=== PATIENT | male | born 1950 | race Caucasian/White ===

== ENCOUNTER → 2020-12-01 | Outpatient (CLI) | payer OTHER ==
--- NOTE | 2020-12-01 16:00 | XR ---
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 TECHNIQUE: Frontal and lateral views of the chest are obtained. FINDINGS: Some underlying emphysematous changes are present. There is no focal air space opacity, ple ural effusion, or pneumothorax seen. The cardiac silhouette size is within normal limits. The osse ous structures are intact. IMPRESSION: No suspicious metallic density or foreign body to prevent MRI.
--- NOTE | 2020-12-01 16:04 | XR ---
EXAMINATION TYPE: XR tibia fibula LT DATE OF EXAM: 12/01/2020 CLINICAL HISTORY: Pre-MRI. Prior metal work. TECHNIQUE: Two views of the left leg are obtained. COMPARISON: None. FINDINGS: There is no acute fracture or dislocation seen in the left tibia or fibula. The visualize d left ankle joint appears within normal limits. Left knee joint is not completely imaged. The overl dougie soft tissue appears unremarkable without suspicious metallic foreign body to prevent MRI. IMPRESSION: As above.
--- NOTE | 2020-12-01 16:22 | XR ---
EXAMINATION TYPE: XR orbit detect foreign body DATE OF EXAM: 12/01/2020 COMPARISON: NONE HISTORY: Pre-MRI. Prior metallic injury. TECHNIQUE: X-ray orbit detect foreign body, 3 views with open and closed mouth frontal view and true lateral view. FINDINGS: No suspicious metallic intraorbital foreign body is seen to prevent MRI. Incidental moderate disc space narrowing and mild to moderate spurring C4-C5 level. IMPRESSION: As above.
== END ==
LOC: RADXRYALE 15:28
PROVIDERS: ATTEND Family Medicine
DX: R05 Cough (principal); Z03.89 Encounter for observation for other suspected diseases and conditions ruled out
CPT/HCPCS: 70030; 71046

== ENCOUNTER 2021-01-02 13:19 | Emergency (ER) | payer MEDICARE ==
--- NOTE | 2021-01-02 15:20 | CT ---
EXAMINATION TYPE: CT brain wo con DATE OF EXAM: 01/02/2021 COMPARISON: None INDICATION: Altered mental status DLP: 1157.2 mGycm, Automated exposure control for dose reduction was used. CONTRAST: None CT of the brain is performed utilizing 3 mm thick sections through the posterior fossa and 3 mm thick sections through the remaining calvarium. Study is performed within 24 hours of arrival to the hosp [facility]. No abnormal hyperdensity is present to suggest an acute intracranial hemorrhage. No mass lesion is evident. No acute infarcts are evident. Periventricular white matter hypodensity is present, likely on the bas is of chronic white matter ischemic changes. Ventricles and sulci are prominent for the patient age. Paranasal sinuses and mastoid air cells within the [id number] are clear. IMPRESSIONS: 1. Atrophy with. Periventricular white matter ischemic changes. 2. No acute intracranial process.
--- NOTE | 2021-01-02 15:21 | XR ---
EXAMINATION TYPE: XR chest 2V DATE OF EXAM: 01/02/2021 COMPARISON: 12/01/2020 INDICATION: Altered mental status weakness falls TECHNIQUE: Frontal and lateral views of the chest are obtained. FINDINGS: The heart size is normal. The pulmonary vasculature is normal. The lungs are clear. There is some hyperinflation which can be related to inspiratory effort or emph ysematous change. No pneumothorax is evident. No displaced rib fractures are evident. IMPRESSION: 1. Hyperinflation. 2. No acute pulmonary process
--- NOTE | 2021-01-02 18:25 | ED ---
Altered Mental Status HPI - General Chief Complaint: Altered Mental Status Stated Complaint: Confused/ Weakness Time Seen by Provider: 01/02/21 18:09 Source: patient, family, RN notes reviewed Mode of arrival: ambulatory Limitations: no limitations - History of Present Illness Initial Comments: Patient is a 70-year-old male that presents to the emergency department with his sister with the complaint of increased confusion and weakness. Sister notes t hat for the last several months patient has had difficulty walking around to the point where to get a 4-point cane. They noted a 4-point cane does help him get around. Patient denied any acute pain or complaints during the Medical exam and interview. Sister notes that there is history is of strokes and TIAs in the family wanted to get her brother evaluated for any potential issues. He denied any chest pain shortness breath headache nausea vomiting diarrhea constipation fever fatigue chills. - Related Data Home Medications Medication Instructions Recorded Confirmed No Known Home Medications 01/02/21 01/02/21 Allergies Allergy/AdvReac Type Severity Reaction Status Date / Time No Known Allergies Allergy Verified 01/02/21 19:17 Review of Systems ROS Statement: Those systems with pertinent positive or pertinent negative responses have been documented in the HPI. ROS Other: All systems not noted in ROS Statement are negative. Past Medical History Past Medical History: Unable to Obtain History of Any Multi-Drug Resistant Organisms: None Reported Past Surgical History: Hernia Repair Past Psychological History: No Psychological Hx Reported Smoking Status: Current every day smoker Past Alcohol Use History: None Reported Past Drug Use History: None Reported General Exam Limitations: no limitations General appearance: alert, in no apparent distress Head exam: Present: atraumatic, normocephalic, normal inspection Eye exam: Present: normal appearance, PERRL, EOMI. Absent: scleral icterus, conjunctival injection, periorbital swelling Neck exam: Present: normal inspection. Absent: tenderness, meningismus, lymp hadenopathy Respiratory exam: Present: normal lung sounds bilaterally. Absent: respiratory distress, wheezes, rales, rhonchi, stridor Cardiovascular Exam: Present: regular rate, normal rhythm, normal heart sounds. Absent: systolic murmur, diastolic murmur, rubs, gallop, clicks GI/Abdominal exam: Present: soft, normal bowel sounds. Absent: distended, tenderness, guarding, rebound, rigid Extremities exam: Present: normal inspection, full ROM, normal capillary refill. Absent: tenderness, pedal edema, joint swelling, calf tenderness Neurological exam: Present: alert, CN II-XII intact. Absent: oriented X3 (Patient thought the year was 2010 and that it was December.) Psychiatric exam: Present: normal affect, normal mood Skin exam: Present: warm, dry, intact, normal color. Absent: rash Course Vital Signs 01/02/21 13:42 Temperature 98 F Pulse Rate 85 Respiratory 16 Rate Blood Pressure 171/81 O2 Sat by Pulse 99 Oximetry Medical Decision Making - Medical Decision Making 70-year-old male presenting with his sister complaining of confusion and weakness. Labs, EKG, CT of the brain, chest x-ray ordered. Labs unremarkable. Case discussed with Dr. Hodge, patient can discharge home with follow-up to [facility]. - Lab Data Result diagrams: 01/02/21 18:35 01/02/21 18:35 Lab Results 01/02/21 01/02/21 01/02/21 Range/Units 18:35 18:35 18:35 WBC 7.7 (3.8-10.6) k/uL RBC 4.40 (4.30-5.90) m/uL Hgb 13.4 (13.0-17.5) gm/dL Hct 39.2 (39.0-53.0) % MCV 89.2 (80.0-100.0) fL MCH 30.6 (25.0-35.0) pg MCHC 34.3 (31.0-37.0) g/dL RDW 13.3 (11.5-15.5) % Plt Count 368 (150-450) k/uL MPV 6.7 Neutrophils % 66 % Lymphocytes % 20 % Monocytes % 7 % Eosinophils % 5 % Basophils % 1 % Neutrophils # 5.1 (1.3-7.7) k/uL Lymphocytes # 1.5 (1.0-4.8) k/uL Monocytes # 0.5 (0-1.0) k/uL Eosinophils # 0.4 (0-0.7) k/uL Basophils # 0.1 (0-0.2) k/uL PT 9.9 (9.0-12.0) sec INR 0.9 (<1.2) APTT 23.6 (22.0-30.0) sec Sodium 133 L (137-145) mmol/L Potassium 4.5 (3.5-5.1) mmol/L Chloride 99 (98-107) mmol/L Carbon Dioxide 26 (22-30) mmol/L Anion Gap 8 mmol/L BUN 12 (9-20) mg/dL Creatinine 0.63 L (0.66-1.25) mg/dL Est GFR (CKD-EPI)AfAm >90 (>60 ml/min/1.73 sqM) Est GFR (CKD-EPI)NonAf >90 (>60 ml/min/1.73 sqM) Glucose 96 (74-99) mg/dL Calcium 9.5 (8.4-10.2) mg/dL Total Bilirubin 1.1 (0.2-1.3) mg/dL AST 25 (17-59) U/L ALT 14 (4-49) U/L Alkaline Phosphatase 78 (38-126) U/L Creatine Kinase 106 (55-170) U/L Troponin I (0.000-0.034) ng/mL Total Protein 7.3 (6.3-8.2) g/dL Albumin 4.5 (3.5-5.0) g/dL Coronavirus (PCR) (Not Detectd) 01/02/21 01/02/21 Range/Units 18:35 18:45 WBC (3.8-10.6) k/uL RBC (4.30-5.90) m/uL Hgb (13.0-17.5) gm/dL Hct (39.0-53.0) % MCV (80.0-100.0) fL MCH (25.0-35.0) pg MCHC (31.0-37.0) g/dL RDW (11.5-15.5) % Plt Count (150-450) k/uL MPV Neutrophils % % Lymphocytes % % Monocytes % % Eosinophils % % Basophils % % Neutrophils # (1.3-7.7) k/uL Lymphocytes # (1.0-4.8) k/uL Monocytes # (0-1.0) k/uL Eosinophils # (0-0.7) k/uL Basophils # (0-0.2) k/uL PT (9.0-12.0) sec INR (<1.2) APTT (22.0-30.0) sec Sodium (137-145) mmol/L Potassium (3.5-5.1) mmol/L Chloride (98-107) mmol/L Carbon Dioxide (22-30) mmol/L Anion Gap mmol/L BUN (9-20) mg/dL Creatinine (0.66-1.25) mg/dL Est GFR (CKD-EPI)AfAm (>60 ml/min/1.73 sqM) Est GFR (CKD-EPI)NonAf (>60 ml/min/1.73 sqM) Glucose (74-99) mg/dL Calcium (8.4-10.2) mg/dL Total Bilirubin (0.2-1.3) mg/dL AST (17-59) U/L ALT (4-49) U/L Alkaline Phosphatase (38-126) U/L Creatine Kinase (55-170) U/L Troponin I <0.012 (0.000-0.034) ng/mL Total Protein (6.3-8.2) g/dL Albumin (3.5-5.0) g/dL Coronavirus (PCR) Not Detected (Not Detectd) - EKG Data -: EKG Interpreted by Oh EKG shows normal: sinus rhythm Rate: normal EKG Comments: Ventricular rate 87 bpm, NE interval 150 ms, QRS duration 100 ms, QT/QTc 400/481 ms, PRT axes 36/-14/34. Normal sinus rhythm, long QT, abnormal ECG. - Radiology Data Radiology results: report reviewed, image reviewed Chest x-ray: Hyperinflation, no acute pulmonary process. CT of the brain: Atrophy with periventricular white matter ischemic changes. No acute intracranial process Disposition Clinical Impression: Dementia Disposition: HOME SELF-CARE Condition: Stable Instructions (If sedation given, give patient instructions): Altered Mental Status (ED) Additional Instructions: Please return to the Emergency Department if symptoms worsen or any other concerns. Follow-up with primary care possibly get referral for neurologist. Look into assisted living or nursing facilities if care for brother becomes too much Is patient prescribed a controlled substance at d/c from ED?: No Referrals: Bernard Cummings DO [Primary Care Provider] - 1-2 days Time of Disposition: 19:38
[2021-01-02 18:43] LABS: Basophils # (A) 0.1 k/uL (0-0.2); Basophils % (A) 1 %; Eosinophils # (A) 0.4 k/uL (0-0.7); Eosinophils % (A) 5 %; HCT 39.2 % (39.0-53.0); HGB 13.4 gm/dL (13.0-17.5); Lymphocytes # (A) 1.5 k/uL (1.0-4.8); Lymphocytes % (A) 20 %; MCH 30.6 pg (25.0-35.0); MCHC 34.3 g/dL (31.0-37.0); MCV 89.2 fL (80.0-100.0); Mean Platelet Volume 6.7; Monocytes # (A) 0.5 k/uL (0-1.0); Monocytes % (A) 7 %; Neutrophils # (A) 5.1 k/uL (1.3-7.7); Neutrophils % (A) 66 %; Platelet Count 368 k/uL (150-450); RDW 13.3 % (11.5-15.5); WBC 7.7 k/uL (3.8-10.6)
[2021-01-02 18:53] LABS: INR 0.9 (<1.2); Partial Thromboplastin Time 23.6 sec (22.0-30.0); Prothrombin Time 9.9 sec (9.0-12.0)
[2021-01-02 18:55] LABS: ALT 14 U/L (4-49); AST 25 U/L (17-59); African American GFR (CKD) >90 (>60 ml/min/1.73 sqM); Albumin 4.5 g/dL (3.5-5.0); Alkaline Phosphatase 78 U/L (38-126); Anion Gap 8 mmol/L; Blood Urea Nitrogen 12 mg/dL (9-20); Calcium 9.5 mg/dL (8.4-10.2); Carbon Dioxide 26 mmol/L (22-30); Chloride 99 mmol/L (98-107); Creatine Kinase 106 U/L (55-170); Glucose 96 mg/dL (74-99); Non-African American GFR(CKD) >90 (>60 ml/min/1.73 sqM); Potassium 4.5 mmol/L (3.5-5.1); Sodium 133 mmol/L (137-145); Total Bilirubin 1.1 mg/dL (0.2-1.3); Total Protein 7.3 g/dL (6.3-8.2)
[2021-01-02 19:41] VITALS: BP 168/93; PULSE 87; RESP 18; TEMP 98.5
== END 2021-01-02 19:57 | disposition home or self-care (01) ==
LOC: EC 13:19
DX: F03.90 Unspecified dementia, unspecified severity, without behavioral disturbance, psychotic disturbance, mood disturbance, and anxiety (principal); F17.200 Nicotine dependence, unspecified, uncomplicated
CPT/HCPCS: 70450; 71046; 80053; 82550; 84484; 85025; 85610; 85730; 87635; 93005; 99285

== ENCOUNTER 2021-03-26 11:30 | Inpatient (IN) | payer OTHER, MEDICARE ==
[2021-03-26] MEDS ORDERED: SODIUM CHLORIDE 0.9% 1,000 ML IV STA (12:19)
[2021-03-26] MEDS ORDERED: SODIUM CHLORIDE 0.9% 500 ML 500 ML IV STA (12:19)
--- NOTE | 2021-03-26 12:54 | ED ---
Weakness HPI - General Chief complaint: Weakness Stated complaint: Weakness/not eating Time Seen by Provider: 03/26/21 12:10 Source: patient, family Mode of arrival: wheelchair Limitations: altered mental status, physical limitation - History of Present Illness Initial comments: This 70-year-old male presents with his sister with a complaint of mental status changes. She relates that this has been ongoing for quite some time. It is difficult to determine exact timeline but it sounds as though it may have been present for over a year. He previously lived in [place]. She picked him up in [place] and brought him back to [place] in November of this year. He has deteriorated since then. He has been diagnosed with dementia. He has had full workup including an EEG yesterday. He had a computed tomography scan of the brain 2 months ago and an MRI scan of the brain last month. He is seeing a local neurologist and was sent to the emergency department for evaluation today. 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 She also relates that normal pressure hydrocephalus was ruled out. She states that his symptoms have progressively and significantly worsened over the last 3 weeks. He previously was able to ambulate but now is unable to ambulate. He also has had a chronic smoker's cough. He also smoked for most of his life. There has been no fevers or chills. There has been any head injuries or trauma. No other identifiable complaints or modifying factors. Patient has no complaints but history is limited due to his dementia. - Related Data Home Medications Medication Instructions Recorded Confirmed Donepezil [Aricept] 10 mg PO HS 03/26/21 03/26/21 Allergies Allergy/AdvReac Type Severity Reaction Status Date / Time No Known Allergies Allergy Verified 03/26/21 13:27 Review of Systems ROS Statement: Those systems with pertinent positive or pertinent negative responses have been documented in the HPI. ROS Other: All systems not noted in ROS Statement are negative. Past Medical History Past Medical History: Dementia History of Any Multi-Drug Resistant Organisms: None Reported Past Surgical History: Hernia Repair Past Psychological History: No Psychological Hx Reported Smoking Status: Current every day smoker Past Alcohol Use History: Abuse Past Drug Use History: None Reported General Exam - General Exam Comments Initial Comments: GENERAL: The patient is well nourished and minimally dehydrated. VITAL SIGNS: Heart rate, blood pressure, respiratory rate reviewed as recorded i n nurse's notes. EYES: Pupils are round and reactive. Extraocular movements are intact. No conjunctival / lid redness or swelling. ENT: No external evidence of injury, swelling, or ecchymosis. Airway is patent. Throat is clear. NECK: Nontender. No swelling or evidence of injury. No subcutaneous emphysema. Trachea is midline. No thyroid mass. HEART: Regular rate and rhythm. Good peripheral pulses. LUNGS/CHEST: Minimal wheezing noted bilaterally. No ecchymosis, subcutaneous emphysema, or tenderness. ABDOMEN: Abdomen soft without tenderness. No palpable masses or organomegaly. No peritoneal signs. No abdominal wall swelling or ecchymosis. EXTREMITIES: No extremity tenderness. Normal muscle tone and function. No thoracolumbar tenderness. NEUROLOGIC: Sensation is grossly intact. Cranial nerve exam reveals face is symmetrical, tongue is midline, speech is clear. SKIN: No abrasions or ecchymosis is noted. No induration or masses noted. PSYCHIATRIC: Alert but confused. Limitations: altered mental status, physical limitation Course Vital Signs 03/26/21 03/26/21 03/26/21 11:41 14:11 14:38 Temperature 97.8 F Pulse Rate 94 80 75 Respiratory 20 18 Rate Blood Pressure 136/81 136/91 O2 Sat by Pulse 96 96 Oximetry 03/26/21 14:43 Temperature Pulse Rate 76 Respiratory Rate Blood Pressure O2 Sat by Pulse Oximetry Medical Decision Making - Medical Decision Making The patient was seen and examined. All diagnostics were reviewed. An IV is established and he is hydrated. He also receives a DuoNeb breathing treatment. Laboratories reviewed and does show mild pronator anemia but no other acute abnormalities. Urinalysis shows some ketonuria but no evidence of infection. Chest x-ray does not show any acute processes. Computed tomography scan of the brain shows some senna sent changes but no acute process. The exact cause of the patient's mental status changes and inability to ambulate/weakness is not definitively determine but it is felt as though he would benefit from admission to the hospital. The sister is quite agreeable. Case is discussed with Dr. Wang and he is agreeable as well. Patient will be admitted to the general medical floor for further treatment. Neurology will consult. Thiamine is initiated. - Lab Data Result diagrams: 03/26/21 13:12 03/26/21 13:12 Lab Results 03/26/21 03/26/21 03/26/21 Range/Units 13:12 13:12 13:12 WBC 10.1 (3.8-10.6) k/uL RBC 4.77 (4.30-5.90) m/uL Hgb 13.7 (13.0-17.5) gm/dL Hct 40.2 (39.0-53.0) % MCV 84.2 (80.0-100.0) fL MCH 28.7 (25.0-35.0) pg MCHC 34.1 (31.0-37.0) g/dL RDW 12.5 (11.5-15.5) % Plt Count 553 H (150-450) k/uL MPV 6.7 Neutrophils % 80 % Lymphocytes % 8 % Monocytes % 7 % Eosinophils % 3 % Basophils % 1 % Neutrophils # 8.0 H (1.3-7.7) k/uL Lymphocytes # 0.8 L (1.0-4.8) k/uL Monocytes # 0.7 (0-1.0) k/uL Eosinophils # 0.3 (0-0.7) k/uL Basophils # 0.1 (0-0.2) k/uL PT 10.3 (9.0-12.0) sec INR 1.0 (<1.2) APTT 26.9 (22.0-30.0) sec Sodium (137-145) mmol/L Potassium (3.5-5.1) mmol/L Chloride (98-107) mmol/L Carbon Dioxide (22-30) mmol/L Anion Gap mmol/L BUN (9-20) mg/dL Creatinine (0.66-1.25) mg/dL Est GFR (CKD-EPI)AfAm (>60 ml/min/1.73 sqM) Est GFR (CKD-EPI)NonAf (>60 ml/min/1.73 sqM) Glucose (74-99) mg/dL Calcium (8.4-10.2) mg/dL Phosphorus (2.5-4.5) mg/dL Magnesium (1.6-2.3) mg/dL Total Bilirubin (0.2-1.3) mg/dL AST (17-59) U/L ALT (4-49) U/L Alkaline Phosphatase (38-126) U/L Troponin I (0.000-0.034) ng/mL Total Protein (6.3-8.2) g/dL Albumin (3.5-5.0) g/dL TSH (0.465-4.680) mIU/L Urine Color Yellow Urine Appearance Clear (Clear) Urine pH 5.5 (5.0-8.0) Ur Specific [place] 1.026 (1.001-1.035) Urine Protein Negative (Negative) Urine Glucose (UA) Negative (Negative) Urine Ketones Trace H (Negative) Urine Blood Negative (Negative) Urine Nitrite Negative (Negative) Urine Bilirubin Negative (Negative) Urine Urobilinogen <2.0 (<2.0) mg/dL Ur Leukocyte Esterase Negative (Negative) 03/26/21 03/26/21 Range/Units 13:12 13:12 WBC (3.8-10.6) k/uL RBC (4.30-5.90) m/uL Hgb (13.0-17.5) gm/dL Hct (39.0-53.0) % MCV (80.0-100.0) fL MCH (25.0-35.0) pg MCHC (31.0-37.0) g/dL RDW (11.5-15.5) % Plt Count (150-450) k/uL MPV Neutrophils % % Lymphocytes % % Monocytes % % Eosinophils % % Basophils % % Neutrophils # (1.3-7.7) k/uL Lymphocytes # (1.0-4.8) k/uL Monocytes # (0-1.0) k/uL Eosinophils # (0-0.7) k/uL Basophils # (0-0.2) k/uL PT (9.0-12.0) sec INR (<1.2) APTT (22.0-30.0) sec Sodium 132 L (137-145) mmol/L Potassium 4.9 (3.5-5.1) mmol/L Chloride 97 L (98-107) mmol/L Carbon Dioxide 25 (22-30) mmol/L Anion Gap 10 mmol/L BUN 21 H (9-20) mg/dL Creatinine 0.59 L (0.66-1.25) mg/dL Est GFR (CKD-EPI)AfAm >90 (>60 ml/min/1.73 sqM) Est GFR (CKD-EPI)NonAf >90 (>60 ml/min/1.73 sqM) Glucose 102 H (74-99) mg/dL Calcium 10.1 (8.4-10.2) mg/dL Phosphorus 4.6 H (2.5-4.5) mg/dL Magnesium 2.3 (1.6-2.3) mg/dL Total Bilirubin 0.8 (0.2-1.3) mg/dL AST 30 (17-59) U/L ALT 18 (4-49) U/L Alkaline Phosphatase 95 (38-126) U/L Troponin I <0.012 (0.000-0.034) ng/mL Total Protein 7.0 (6.3-8.2) g/dL Albumin 4.1 (3.5-5.0) g/dL TSH 1.920 (0.465-4.680) mIU/L Urine Color Urine Appearance (Clear) Urine pH (5.0-8.0) Ur Specific [place] (1.001-1.035) Urine Protein (Negative) Urine Glucose (UA) (Negative) Urine Ketones (Negative) Urine Blood (Negative) Urine Nitrite (Negative) Urine Bilirubin (Negative) Urine Urobilinogen (<2.0) mg/dL Ur Leukocyte Esterase (Negative) Disposition Clinical Impression: Dementia, Cough, Mental status alteration, Inability to walk, COPD (chronic obstructive pulmonary disease) Disposition: ADMITTED IP TO THIS [facility] Condition: Fair Referrals: Bernard Cummings DO [Primary Care Provider] - 1-2 days Time of Disposition: 16:04 Decision Date: 03/26/21 Decision Time: 16:04
[2021-03-26] MEDS ORDERED: IPRATROPIUM-ALBUTEROL 3 ML NEB INHALATION STA (13:00)
[2021-03-26 13:26] LABS: Basophils # (A) 0.1 k/uL (0-0.2); Basophils % (A) 1 %; Eosinophils # (A) 0.3 k/uL (0-0.7); Eosinophils % (A) 3 %; HCT 40.2 % (39.0-53.0); HGB 13.7 gm/dL (13.0-17.5); Lymphocytes # (A) 0.8 k/uL (1.0-4.8); Lymphocytes % (A) 8 %; MCH 28.7 pg (25.0-35.0); MCHC 34.1 g/dL (31.0-37.0); MCV 84.2 fL (80.0-100.0); Mean Platelet Volume 6.7; Monocytes # (A) 0.7 k/uL (0-1.0); Monocytes % (A) 7 %; Neutrophils % (A) 80 %; Platelet Count 553 k/uL (150-450); RBC 4.77 m/uL (4.30-5.90); RDW 12.5 % (11.5-15.5); WBC 10.1 k/uL (3.8-10.6)
[2021-03-26 13:31] LABS: Partial Thromboplastin Time 26.9 sec (22.0-30.0); Prothrombin Time 10.3 sec (9.0-12.0)
[2021-03-26 13:51] LABS: ALT 18 U/L (4-49); AST 30 U/L (17-59); African American GFR (CKD) >90 (>60 ml/min/1.73 sqM); Albumin 4.1 g/dL (3.5-5.0); Alkaline Phosphatase 95 U/L (38-126); Anion Gap 10 mmol/L; Blood Urea Nitrogen 21 mg/dL (9-20); Calcium 10.1 mg/dL (8.4-10.2); Carbon Dioxide 25 mmol/L (22-30); Chloride 97 mmol/L (98-107); Glucose 102 mg/dL (74-99); Magnesium 2.3 mg/dL (1.6-2.3); Non-African American GFR(CKD) >90 (>60 ml/min/1.73 sqM); Phosphorus 4.6 mg/dL (2.5-4.5); Potassium 4.9 mmol/L (3.5-5.1); Sodium 132 mmol/L (137-145); Total Bilirubin 0.8 mg/dL (0.2-1.3)
--- NOTE | 2021-03-26 14:36 | CT ---
EXAMINATION TYPE: CT brain wo con DATE OF EXAM: 03/26/2021 COMPARISON: 01/02/2021 HISTORY: 70-year-old male neuro deficit, acute, persistent or progressing TECHNIQUE: Examination was done in axial plane without intravenous contrast. Coronal and sagittal r econstructions performed. CT DLP: 1107.4 mGycm Automated exposure control for dose reduction was used. FINDINGS: There is no evidence of acute intracranial hemorrhage, acute ischemic changes, mass, mass-effect, or extra-axial fluid collection. There is no effacement of cerebral sulci or basal subarachnoid cister ns. There is no hydrocephalus. There is no midline shift. Foster-white matter distinction is preserv ed. Mild generalized supratentorial volume loss. Mild ventricular prominence is unchanged likely secondar y to central cerebral atrophy. Mild to moderate patchy white matter hypodensities in both cervical he mispheres. Mild atherosclerotic calcifications in the bilateral carotid siphons. Paranasal sinuses and mastoid air cells well pneumatized. Visualized orbits and globes are intact. IMPRESSION: Mild generalized atrophy and mild burden of chronic small vessel ischemic disease. No acute intracran ial abnormality seen.
--- NOTE | 2021-03-26 14:41 | XR ---
EXAMINATION TYPE: XR chest 2V DATE OF EXAM: 03/26/2021 COMPARISON: 01/02/2021 HISTORY: 70-year-old male with weakness TECHNIQUE: AP and lateral views FINDINGS: Heart upper limits of normal in size. Increased interstitial change and some patchy opacity in the pe riphery of the right lung and also at the posterior base. No sizable effusion. IMPRESSION: Borderline heart size. Increased interstitial changes throughout along with new patchy densities cinthia phery of the right lung and posterior base. Further clinical correlation recommended. Some considerat ions include pulmonary vascular congestion, interstitial pneumonitis, and atypical/COVID pneumonia.
[2021-03-26 15:30] LABS: Appearance,Urine Clear (Clear); Bilirubin,Urine Negative (Negative); Blood,Urine Negative (Negative); Color,Urine Yellow; Glucose,Urine (UA) Negative (Negative); Ketones,Urine Trace (Negative); Leukocyte Esterase,Urine Negative (Negative); Nitrite,Urine Negative (Negative); PH, Urine 5.5 (5.0-8.0); Protein,Urine Negative (Negative); Specific Gravity,Urine 1.026 (1.001-1.035); Urobilinogen,Urine <2.0 mg/dL (<2.0)
[2021-03-26] MEDS ORDERED: MAGNESIUM OXIDE 400 MG TAB PO STA (16:05)
[2021-03-26] MEDS ORDERED: ACETAMINOPHEN TAB 325 MG TAB PO PRN (16:06)
[2021-03-26] MEDS ORDERED: ONDANSETRON 4 MG/2 ML VIAL IVP PRN (16:06)
[2021-03-26] MEDS ORDERED: THIAMINE 100 MG TAB PO SCH (16:15)
--- NOTE | 2021-03-26 21:16 | P.HPIM ---
History of Present Illness This is a pleasant 70 years old male with past medical history of dementia, memory impairment, alcohol abuse. He is a patient of Dr. Cummings. Brought by his sister who is at bedside. She could not provide any information. As per sister patient lives in [place] and last October she she was talking to him on the a phone call and notice he is confused thinking that he saw her the day earlier so she traveled to him and brought him here to [place] she was found up with Dr. Cummings who referred her to neurologist Dr. Monica Fields who did workup for him including MRI of the brain, CT of the brain, EEG and it was unremarkable as per sister, she was told by her neurologist that the patient does not have NPH or seizure-like activity so she advised him to come to emergency room. Patient is lying in bed comfortable, not in distress, barely answers with one or 2 words, like his name only. He does not answer when asked about orientation. However he denies any pain. No headache. No blurred vision. No weakness or nu mbness. No chest pain. No diarrhea however on the way to the hospital he has 1 episode of loose stool. No urinary complaints. However history is limited by patient mental status. As per he is heavy smoker and he drinks 4-5 drinks of whiskey daily. Vitas looks stable. Patient was noticed to be little bit tachypneic and he is coughing but it's a dry Oxygen saturation is 96-94% on room air. CBC is unremarkable except for mildly elevated platelet count at 553, neutrophil count is elevated at 8.0 and low lymphocyte. Is 1.0. Sodium is slightly low at 132,. BUN is 21 and creatinine 0.9. Glucose 102. Phosphorus is a little high at 4.6. Magnesium 2.3. Liver enzymes and bilirubin are within the reference range. Urinalysis is no suspicious of infections and coronavirus not detected. EKG showing normal sinus rhythm at [address]-T changes His x-rays show an increase interstitial changes throughout the lung with new patchy density periphery of the right lung and posterior base. Further clinical correlation recommended. Some considerations include pulmonary vascular congestion, interstitial pneumonitis and atypical, pneumonia. CT of the brain: Mild generalized atrophy and multiple organ of chronic small vessel ischemic disease. No acute intracranial abnormality seen. In the emergency room patient received breathing treatment, magnesium oxide, 1.5 L of normal saline Review of Systems n/a, patient could not provide information because of confusion Past Medical History Past Medical History: Dementia, Memory Impairment, Musculoskeletal Disorder Additional Past Medical History / Comment(s): Hx ETOH, smoker History of Any Multi-Drug Resistant Organisms: None Reported Past Surgical History: Hernia Repair Past Anesthesia/Blood Transfusion Reactions: No Reported Reaction Past Psychological History: No Psychological Hx Reported Smoking Status: Former smoker Past Alcohol Use History: Abuse Past Drug Use History: None Reported - Past Family History Father Family Medical History: CVA/TIA Medications and Allergies Home Medications Medication Instructions Recorded Confirmed Type Donepezil [Aricept] 10 mg PO HS 03/26/21 03/26/21 History Allergies Allergy/AdvReac Type Severity Reaction Status Date / Time No Known Allergies Allergy Verified 03/26/21 13:27 Physical Exam Vitals: Vital Signs Temp Pulse Resp BP Pulse Ox 03/26/21 18:30 17 03/26/21 18:17 98.7 F 78 14 144/86 94 L 03/26/21 14:43 76 03/26/21 14:38 75 03/26/21 14:11 80 18 136/91 96 03/26/21 11:41 97.8 F 94 20 136/81 96 Intake and Output 03/26/21 03/26/21 03/26/21 06:59 14:59 22:59 Other: Weight 70.76 kg 70.76 kg -GENERAL: The patient is confused, open eyes spontaneously and and answers with 1 or 2 words at times, not in any acute distress. Well developed, well nourished. HEENT: Pupils are round and equally reacting to light. EOMI. No scleral icterus. No conjunctival pallor. Normocephalic, atraumatic. No pharyngeal erythema. No thyromegaly. CARDIOVASCULAR: S1 and S2 present. No murmurs, rubs, or gallops. -PULMONARY: Chest is clear to auscultation, no wheezing or crackles. Patient is mildly tachypneic ABDOMEN: Soft, nontender, nondistended, normoactive bowel sounds. No palpable organomegaly. MUSCULOSKELETAL: No joint swelling or deformity. EXTREMITIES: No cyanosis, clubbing, or pedal edema. NEUROLOGICAL: Gross neurological examination did not reveal any focal deficits. SKIN: No rashes. no petechiae. Results CBC & Chem 7: 03/26/21 13:12 03/26/21 13:12 Labs: Abnormal Lab Results - Last 24 Hours (Table) 03/26/21 03/26/21 03/26/21 Range/Units 13:12 13:12 13:12 Plt Count 553 H (150-450) k/uL Neutrophils # 8.0 H (1.3-7.7) k/uL Lymphocytes # 0.8 L (1.0-4.8) k/uL Sodium 132 L (137-145) mmol/L Chloride 97 L (98-107) mmol/L BUN 21 H (9-20) mg/dL Creatinine 0.59 L (0.66-1.25) mg/dL Glucose 102 H (74-99) mg/dL Phosphorus 4.6 H (2.5-4.5) mg/dL Urine Ketones Trace H (Negative) Thrombosis Risk Factor Assmnt - Choose All That Apply Each Factor Represents 1 point: Medical pt on bed rest Each Risk Factor Represents 2 Points: Age 61-74 years Thrombosis Risk Factor Assessment Total Risk Factor Score: 3 Thrombosis Risk Factor Assessment Level: Moderate Risk Assessment and Plan Assessment: Altered mental status, rule out metabolic encephalopathy on the top of his dementia Bilateral pulmonary patchy density on the right lung. Rule out pneumonia versus pulmonary vascular congestion Dementia, could be early Alzheimer dementia , could be also related to alcoholic effect Plan: This is a pleasant 70 years old male who presents with AMS and right patchy density of the lung. Check a pro-calcitonin, proBNP Check echocardiogram Check ABG Follow-up blood culture Neurology consult Labs and medication were reviewed.. Continue same treatment. Continue with symptomatic treatment. Resume home medication. Monitor lytes and vitals. DVT and GI prophylaxis. Further recommendations as per clinical course of the patient DVT prophylaxis: Subcutaneous Lovenox GI Prophylaxis: Pepcid Prognosis is guarded
[2021-03-26] MEDS: FOLIC ACID 1 MG TAB PO SCH (22:05)
[2021-03-26] MEDS: DONEPEZIL 10 MG TAB PO SCH (22:05)
[2021-03-26] MEDS: THIAMINE 100 MG in SODIUM CHLORIDE 0.9% 50 ML IVPB SCH (22:05)
[2021-03-27 02:06] LABS: ABG Base Excess 0.8 mmol/L; ABG HCO3 25 mmol/L (21-25); ABG Oxygen Saturation 91.8 % (94-97); ABG PCO2 35 mmHg (35-45); ABG PH 7.46 (7.35-7.45); ABG PO2 61 mmHg (83-108); ABG TCO2 26 mmol/L (19-24); Allen Test Performed? Yes
[2021-03-27] MEDS ORDERED: PANTOPRAZOLE 40 MG TABLET PO SCH (07:30)
[2021-03-27] MEDS: FAMOTIDINE 20 MG/2 ML VIAL IV SCH ×2 (09:07→21:09)
[2021-03-27] MEDS: FOLIC ACID 1 MG TAB PO SCH (09:13)
[2021-03-27] MEDS: ENOXAPARIN 40 MG/0.4 ML SYRINGE SQ SCH (09:13)
[2021-03-27] MEDS: THIAMINE 100 MG in SODIUM CHLORIDE 0.9% 50 ML IVPB SCH ×2 (09:13→21:18)
[2021-03-27 10:33] LABS: Folate, Serum 4.5 ng/mL
[2021-03-27] MEDS: CARBIDOPA-LEVODOPA 25-100 MG 1 EACH TAB PO SCH ×3 (11:12→21:10)
[2021-03-27] MEDS ORDERED: CYANOCOBALAMIN 1,000 MCG/ML 1 ML VIAL IM ONE (11:25)
--- NOTE | 2021-03-27 11:28 | P.CNNES ---
History of Present Illness Consult date: 03/27/21 Requesting physician: Juan Daniel Lott Reason for Consult: mental status change, weakness History of Present Illness: This is a 70-year-old element with medical history of Dementia, severe alcohol use,chronic tobacco use, that is to the emergency department on 03/26/2021 for altered mental status. History was obtained from medical record. Per the ED note patient has been having altered mentation for over a year but has been progressively worsening especially over the last 3 weeks. He use to live in [place] and is seems the family member (sister), picked him up at [place] and brought him back to [place] in November the 2020. It seems that he is follow-up with a local neurologist and he had workup in which she had an EEG the day before come to the hospital, MRI of the brain last month and his work-up was reported as unremarkable per the sister that was relayed to the primary team. And normal pressure hydrocephalus and was not felt like seizure-like activity ruled out. He is having also difficulty ambulating. 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 I spoke with the primary team and he stated the neurologist that patient is seen by is Dr. Rich Fields. Upon seeing the patient he stated that he has not been using for the last few weeks. He denies of any focal weakness or numbness. Patient is on Aricept 10 mg daily. Some of the workup in the hospital consisted of: Initial vital signs: Blood pressure of 136/81, heart rate of 94, respiratory of 20, temperature of 97.8 Fahrenheit oral and pulse ox of 96% room air. CT of the head is reported as mild generalized atrophy and mild burden of chronic vessel ischemic disease. No acute intracranial abnormality seen. Patient's the white blood cells 10.1 thousand which is within normal limits at. The platelet is 553K which is elevated. Chemistry panel: Sodium is 132 which is mildly low phosphorus 4.6 which is elevated. Otherwise creatinine is 0.59, glucose is 102, calcium is 10.1, magnesium 2.3, AST of 30 and ALT of 18, ammonia is 11 which are all within normal limits. TSH is 1.920 which is within normal limits. EKG is reported as normal sinus rhythm. Normal EKG. Chest x-ray was reported as borderline heart size. Increased interstitial changes throughout along with new patchy densities perforate of the right long posterior base. Further clinical correlation recommended. Some consideration include pulmonary vascular congestion, interstitial pneumonitis and atypical/covid pneumonia Review of Systems Review of system: The 12 point system was reviewed and apparent positive and negative per HPI. Past Medical History Past Medical History: Dementia, Memory Impairment, Musculoskeletal Disorder Additional Past Medical History / Comment(s): Hx ETOH, smoker History of Any Multi-Drug Resistant Organisms: None Reported Past Surgical History: Hernia Repair Past Anesthesia/Blood Transfusion Reactions: No Reported Reaction Past Psychological History: No Psychological Hx Reported Smoking Status: Former smoker Past Alcohol Use History: Abuse Past Drug Use History: None Reported - Past Family History Father Family Medical History: CVA/TIA Medications and Allergies Home Medications Medication Instructions Recorded Confirmed Type Donepezil [Aricept] 10 mg PO HS 03/26/21 03/26/21 History Allergies Allergy/AdvReac Type Severity Reaction Status Date / Time No Known Allergies Allergy Verified 03/26/21 13:27 Physical Examination - Vital Signs Vital Signs: Vital Signs Temp Pulse Pulse Resp BP BP Pulse Ox 03/27/21 07:40 98.5 F 84 18 141/79 92 L 03/27/21 02:00 98.1 F 87 146/82 92 L 03/26/21 20:00 98.2 F 85 145/70 94 L 03/26/21 18:30 17 03/26/21 18:17 98.7 F 78 14 144/86 94 L 03/26/21 14:43 76 03/26/21 14:38 75 03/26/21 14:11 80 18 136/91 96 03/26/21 11:41 97.8 F 94 20 136/81 96 Intake and Output 03/26/21 03/27/21 03/27/21 22:59 06:59 14:59 Other: Voiding Method Diaper Incontinent # Voids 2 Weight 70.76 kg GENERAL: The patient is lying in bed and is not in acute distress. CHEST: The heart rate is regular rate rhythm. No murmurs to auscultation. LUNG: Clear to auscultation bilaterally no wheezing noted throughout. Not labored breathing. ABDOMEN/GI: Bowel sounds present in all 4 quadrants. No tenderness to palpation throughout. NEUROLOGICAL: Higher mental function: The patient is awake, alert, oriented to self. He stated he is in the hospital but could not tell which. He did not answer for the year. Patient is able to name objects (pen and watch). Patient is following simple commands. No aphasia and no neglect. Cranial nerves: The pupils are round, equal and reactive to light. Visual smith are full to confrontation throughout. Extraocular movement is intact no nystagmus is noted. Facial sensation is normal to touch throughout. The facial strength is normal throughout. He seems to have flat face. Hearing is moderately decreaased bilaterally to hand rub. Tongue is midline and moved [id number] without any difficulty. No dysarthria is noted. Shoulder shrug is normal bilaterally. Motor: Gait is deferred. The strength is 5- over 5 throughout. Normal tone and bulk. He has resting tremor of the right hand. Cerebellum: Could not assess because cooperation. Sensation: Sensation is normal to touch throughout. Reflexes (right/left): 1+ Plantars are downgoing bilaterally. Results Basic coagulation study: Is within normal limits. Urinalysis is negative for urinary tract infection. Ford virus PCR was not detected. - Laboratory Findings CBC and BMP: 03/26/21 13:12 03/26/21 13:12 Abnormal Lab Findings: Abnormal Labs 03/26/21 03/26/21 03/26/21 13:12 13:12 13:12 Plt Count 553 H Neutrophils # 8.0 H Lymphocytes # 0.8 L ABG pH ABG pO2 ABG Total CO2 ABG O2 Saturation Sodium 132 L Chloride 97 L BUN 21 H Creatinine 0.59 L Glucose 102 H Phosphorus 4.6 H Urine Ketones Trace H 03/27/21 02:00 Plt Count Neutrophils # Lymphocytes # ABG pH 7.46 H ABG pO2 61 L ABG Total CO2 26 H ABG O2 Saturation 91.8 L Sodium Chloride BUN Creatinine Glucose Phosphorus Urine Ketones Assessment and Plan Assessment: * His altered in mentation could be due to multifactorial: Encephalopathy due to ([employer]) on top for chronic alcohol use and low vitamin B12 and folic deficiency. Also possibly due to Parkinson's dementia vs other types of underlying dementia. * Resting tremor of the right upper extremity. Seems Likely Parkinson's disease. * Folic acid defiency (4.5) * Low Vitamin B12: 367 * Chronic alcohol use * Chronic nicotine dependence Plan: Patient had a recent EEG and MRI of the brain by his neurologist (Dr. Fields) recently and were unremarkable. TSH is 1.92 which is considered normal. I start the patient on sentiments 25-100mg 1 tab tid. Vitamin B12 367 (Normal 200-944). I started the patient on vitamin B12 1000 g intramuscular for 1 day and then starting tomorrow by mouth. Folic acid 4.5 (>5.38). Patient is also on folic acid 1 mg daily. Pending hemoglobin A1c that's ordered by the primary team. I ordered MRI of the brain, routine EEG. I will not start the patient on antiepileptic drug unless there is epileptiform discharges or seizure on the EEG. PT, OT and RATER ASSOCIATE are consulted. Ordered alcohol level. Patient is on thiamine 100 mg every 12 hours per the primary team. Patient was restarted on his home medication of Aricept 10 mg daily at bedtime We'll defer the rest of the medical management to the primary team. The plan is discussed with the primary attending and his nurse. I attempted to contact the patient's sister (Kailey) but no response. Thank you for the consultation Jose Raul Carlos MD Neuro-Hospitalist Time with Patient: Greater than 30
[2021-03-27 14:04] VITALS: BMI 21.1
--- NOTE | 2021-03-27 15:29 | MR ---
EXAMINATION TYPE: MR brain wo con DATE OF EXAM: 03/27/2021 COMPARISON: CT brain 03/26/2021 HISTORY: AMS, weakness CONTRAST: Performed utilizing 0 mL intravenous Gadavist gadolinium contrast. TECHNIQUE: Multiplanar, multiecho imaging on a 3.0 Sherrell magnet is performed through the brain. Stud y is performed within 24 hours of arrival to the hospital. The craniovertebral junction is normal. The pituitary is normal. Diffusion-weighted imaging is performed. No abnormal hyperintensity is present to suggest an acute i ntracranial infarct or acute ischemic change. There is some periventricular white matter hyperintensity on T2 and inversion recovery weighted seque nces. Small amount of white matter change may be within the brainstem. Findings are nonspecific but c an be related to microvascular ischemic change among other etiologies. Ventricles and sulci are prominent for the patient age. IMPRESSIONS: 1. Atrophy with chronic appearing periventricular white matter ischemic changes.
--- NOTE | 2021-03-27 15:55 | FL ---
EXAMINATION TYPE: FL barium swallow w video DATE OF EXAM: 03/27/2021 MODIFIED SWALLOW / DEGLUTITION STUDY CLINICAL HISTORY: Dysphagia. TECHNIQUE: Deglutition study is performed utilizing thin liquid barium, nectar thick liquid barium, barium thick applesauce, and barium coated cracker. COMPARISON: None. FINDINGS: The oral and pharyngeal phases show delayed initiation and propagation with all modalities tested. Normal mastication is seen with solid modalities tested. There is alverto aspiration with thi n barium. IMPRESSION: 1. Alverto aspiration with thin barium. 2. Delayed initiation of swallow mechanism.
--- NOTE | 2021-03-27 16:48 | EEG ---
ELECTROENCEPHALOGRAM REPORT DATE OF SERVICE: 03/27/2021 CLINICAL HISTORY: This is a 70-year-old gentleman with altered mental status. The video EEG is obtained to evaluate for seizure activity. RELEVANT MEDICATION: The patient is not on any antiepileptic drugs. DESCRIPTION: Wakefulness and drowsiness are obtained. During wakefulness, there is [id number] voltage of 8.5-9 hertz activity that is well modulated and well sustained. During drowsiness there is slowing and attenuation of the background activity. There was no physiological stage 2 sleep. There is no focal slowing. Interictal and ictal are none. ACTIVATION PROCEDURE: Photic stimulation: There is photic drive at multiple low flash frequencies. There is no abnormality during photic stimulation. Hyperventilation is not performed. CLINICAL INTERPRETATION: This is a normal routine EEG. There are no focal slowing, epileptiform discharges were seen during the EEG. Clinical correlation is recommended. JACOB / PRIETO: [id number] / MTDD
[2021-03-27 17:04] LABS: Hemoglobin A1C 5.5 % (4.0-6.0)
--- NOTE | 2021-03-27 20:13 | P.PN ---
Subjective This is a pleasant 70 years old male with past medical history of dementia, memory impairment, alcohol abuse. He is a patient of Dr. Cummings. Brought by his sister who is at bedside. She could not provide any information. As per sister patient lives in [place] and last October she she was talking to him on the a phone call and notice he is confused thinking that he saw her the day earlier so she traveled to him and brought him here to [place] she was found up with Dr. Cummings who referred her to neurologist Dr. Monica Fields who did workup for him including MRI of the brain, CT of the brain, EEG and it was unremarkable as per sister, she was told by her neurologist that the patient does not have NPH or seizure-like activity so she advised him to come to emergency room. Patient is lying in bed comfortable, not in distress, barely answers with one or 2 words, like his name only. He does not answer when asked about orientation. However he denies any pain. No headache. No blurred vision. No weakness or numbness. No chest pain. No diarrhea however on the way to the hospital he has 1 episode of loose stool. No urinary complaints. However history is limited by patient mental status. As per he is heavy smoker and he drinks 4-5 drinks of whiskey daily. Vitas looks stable. Patient was noticed to be little bit tachypneic and he is coughing but it's a dry Oxygen saturation is 96-94% on room air. CBC is unremarkable except for mildly elevated platelet count at 553, neutrophil count is elevated at 8.0 and low lymphocyte. Is 1.0. Sodium is slightly low at 132,. BUN is 21 and creatinine 0.9. Glucose 102. Phosphorus is a little high at 4.6. Magnesium 2.3. Liver enzymes and bilirubin are within the reference range. Urinalysis is no suspicious of infections and coronavirus not detected. EKG showing normal sinus rhythm at [address]-T changes His x-rays show an increase interstitial changes throughout the lung with new patchy density periphery of the right lung and posterior base. Further clinical correlation recommended. Some considerations include pulmonary vascular congestion, interstitial pneumonitis and atypical, pneumonia. CT of the brain: Mild generalized atrophy and multiple organ of chronic small vessel ischemic disease. No acute intracranial abnormality seen. In the emergency room patient received breathing treatment, magnesium oxide, 1.5 L of normal saline Objective - Vital Signs Vital signs: Vital Signs Temp 98.5 F 03/27/21 07:40 Pulse 84 03/27/21 07:40 Resp 18 03/27/21 08:00 BP 141/79 03/27/21 07:40 Pulse Ox 92 L 03/27/21 07:40 Intake & Output 03/26/21 03/27/21 03/27/21 18:59 06:59 18:59 Weight 70.76 kg 70.76 kg Other: Voiding Method Diaper Diaper Incontinent Incontinent # Voids 2 - Exam -GENERAL: The patient is awake but confused, however is more interactive today, not in any acute distress. Obese HEENT: Pupils are round and equally reacting to light. EOMI. No scleral icterus. No conjunctival pallor. Normocephalic, atraumatic. No pharyngeal erythema. No thyromegaly. CARDIOVASCULAR: S1 and S2 present. No murmurs, rubs, or gallops. PULMONARY: Chest is clear to auscultation, no wheezing or crackles. ABDOMEN: Soft, nontender, nondistended, normoactive bowel sounds. No palpable organomegaly. MUSCULOSKELETAL: No joint swelling or deformity. EXTREMITIES: No cyanosis, clubbing, or pedal edema. NEUROLOGICAL: Gross neurological examination did not reveal any focal deficits. SKIN: No rashes. no petechiae. - Labs CBC & Chem 7: 03/26/21 13:12 03/26/21 13:12 Labs: Abnormal Lab Results - Last 24 Hours (Table) 03/26/21 03/26/21 03/26/21 Range/Units 13:12 13:12 21:49 ABG pH (7.35-7.45) ABG pO2 (83-108) mmHg ABG Total CO2 (19-24) mmol/L ABG O2 Saturation (94-97) % Sodium 132 L (137-145) mmol/L Chloride 97 L (98-107) mmol/L BUN 21 H (9-20) mg/dL Creatinine 0.59 L (0.66-1.25) mg/dL Glucose 102 H (74-99) mg/dL Phosphorus 4.6 H (2.5-4.5) mg/dL Procalcitonin 0.11 H (0.02-0.09) ng/mL Urine Ketones Trace H (Negative) 03/27/21 Range/Units 02:00 ABG pH 7.46 H (7.35-7.45) ABG pO2 61 L (83-108) mmHg ABG Total CO2 26 H (19-24) mmol/L ABG O2 Saturation 91.8 L (94-97) % Sodium (137-145) mmol/L Chloride (98-107) mmol/L BUN (9-20) mg/dL Creatinine (0.66-1.25) mg/dL Glucose (74-99) mg/dL Phosphorus (2.5-4.5) mg/dL Procalcitonin (0.02-0.09) ng/mL Urine Ketones (Negative) Assessment and Plan Assessment: Altered mental status, rule out metabolic encephalopathy on the top of his dementia Bilateral pulmonary patchy density on the right lung. Rule out pneumonia versus pulmonary vascular congestion Dementia, could be early Alzheimer dementia , could be also related to alcoholic effect Plan: This is a pleasant 70 years old male who presents with AMS and right patchy density of the lung. Follow-up blood culture. Neurology consult was started the patient on Sinemet and vitamin B12 replacement Continue with gentle hydration Repeat chest x-ray and labs in the morning Labs and medication were reviewed.. Continue same treatment. Continue with symptomatic treatment. Resume home medication. Monitor lytes and vitals. DVT and GI prophylaxis. Further recommendations as per clinical course of the patient DVT prophylaxis: Subcutaneous Lovenox GI Prophylaxis: Pepcid Prognosis is guarded Discussed the case with the neurologist
[2021-03-27] MEDS: DONEPEZIL 10 MG TAB PO SCH (21:10)
--- NOTE | 2021-03-28 07:30 | XR ---
EXAMINATION TYPE: XR chest 1V DATE OF EXAM: 03/28/2021 HISTORY: Shortness of breath. COMPARISON: 03/26/2021 TECHNIQUE: Single view of the chest is submitted. FINDINGS: Demonstrated are scattered senescent parenchymal change. Nonspecific Coarse infiltrates bilaterally demonstrates interval progression. The heart is stable. Hilar and mediastinal structures are within normal limits. Degenerative changes are seen of the dorsal spine. IMPRESSION: 1. Nonspecific Coarse infiltrates bilaterally demonstrates interval progression.
[2021-03-28] MEDS: FAMOTIDINE 20 MG/2 ML VIAL IV SCH ×2 (08:31→22:19)
[2021-03-28] MEDS: CARBIDOPA-LEVODOPA 25-100 MG 1 EACH TAB PO SCH ×2 (08:32→17:25)
[2021-03-28] MEDS: FOLIC ACID 1 MG TAB PO SCH (08:32)
[2021-03-28] MEDS: THIAMINE 100 MG in SODIUM CHLORIDE 0.9% 50 ML IVPB SCH (08:32)
[2021-03-28] MEDS: ENOXAPARIN 40 MG/0.4 ML SYRINGE SQ SCH (08:32)
--- NOTE | 2021-03-28 10:10 | P.PN ---
Subjective Progress Note Date: 03/28/21 The patient is seen at bedside and he is about the same today compared to yesterday. Routine EEG on 03/27/2021 is normal. There are no focal slowing, epileptiform discharges or seizure on the EEG. MRI the brain is reported as atrophy with chronic appearing periventricular white matter ischemic changes. Video barium swallow: Jc aspiration with thin barium. Delayed amnesia is swallow mechanism. Objective - Vital Signs Vital signs: Vital Signs Temp 98 F 03/28/21 07:24 Pulse 71 03/28/21 07:24 Resp 18 03/28/21 07:24 BP 156/85 03/28/21 07:24 Pulse Ox 91 L 03/28/21 07:24 Intake & Output 03/27/21 03/28/21 03/28/21 18:59 06:59 18:59 Intake Total 300 Output Total 350 350 Balance -50 -350 Weight 70.76 kg Intake: Oral 300 Output: Urine 350 350 Other: Voiding Method Diaper Diaper Incontinent Incontinent # Bowel Movements 1 - Exam GENERAL: The patient is lying in bed and is not in acute distress. NEUROLOGICAL: Higher mental function: The patient is awake, alert, oriented to self. He stated he is in the hospital but could not tell which. He did not answer for the year. Patient is able to name objects (pen and watch). Patient is following simple commands. No aphasia and no neglect. Cranial nerves: The pupils are round, equal and reactive to light. Visual smith are full to confrontation throughout. Extraocular movement is intact no nystagmus is noted. Facial sensation is normal to touch throughout. The facial strength is normal throughout. He seems to have flat face. Hearing is moderately decreaased bilaterally to hand rub. Tongue is midline and moved [id number] without any difficulty. No dysarthria is noted. Shoulder shrug is normal bilaterally. Motor: Gait is deferred. The strength is 5- over 5 throughout. Normal tone and bulk. He has resting tremor of the right hand and slight on left (but predominately right). Cerebellum: Could not assess because cooperation. Sensation: Sensation is normal to touch throughout. Reflexes (right/left): 1+ Plantars are downgoing bilaterally. WORK-UP: Routine EEG on 03/27/2021 is normal. There are no focal slowing, epileptiform discharges or seizure on the EEG. MRI the brain is reported as atrophy with chronic appearing periventricular white matter ischemic changes. Video barium swallow: Jc aspiration with thin barium. Delayed amnesia is swallow mechanism. TSH is 1.92 which is considered normal. Vitamin B12 367 (Normal 200-944). Folic acid 4.5 (>5.38). Hemoglobin A1c is 5.5 which is considered within normal limits. Alcohol level is less than 10 Patient had a recent EEG and MRI of the brain by his neurologist (Dr. Fields) recently and were unremarkable. 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 Also possibly due to Parkinson's dementia vs other types of underlying dementia. * Resting tremor of the right upper extremity. Seems Likely Parkinson's disease. * Folic acid defiency (4.5) * Low Vitamin B12: 367 * Dysphagia (per Barium swallow) * Chronic alcohol use * Chronic nicotine dependence Plan: * Continue Sinement 25-100mg 1 tab tid. * Continue vitamin B12 1000 mcg PO daily * Continue folic acid 1 mg daily. * PT, OT and SL[employer] MACHINE [employer] PERSON are consulted. * Patient is on thiamine 100 mg every 12 hours per the primary team. * On his home medication of Aricept 10 mg daily at bedtime * We'll defer the rest of the medical management to the primary team. * Upon discharge the patient needs to follow-up with his neurologist (Dr. Fields) within 1-2 weeks as outpatient. The plan is discussed with the primary attending and his nurse. There is no further work-up. Will follow-up sporadically. Jose Raul Carlos MD Neuro-Hospitalist Time with Patient: Less than 30
[2021-03-28] MEDS: CYANOCOBALAMIN 1,000 MCG/ML 1 ML VIAL IM SCH (17:25)
[2021-03-28] MEDS ORDERED: RX INFO: IV CONTRAST WAS GIVEN 1 EACH MISC MISCELLANE PRN (20:50)
--- NOTE | 2021-03-28 20:58 | P.PN ---
Subjective This is a pleasant 70 years old male with past medical history of dementia, memory impairment, alcohol abuse. He is a patient of Dr. Cummings. Brought by his sister who is at bedside. She could not provide any information. As per sister patient lives in [place] and last October she she was talking to him on the a phone call and notice he is confused thinking that he saw her the day earlier so she traveled to him and brought him here to [place] she was found up with Dr. Cummings who referred her to neurologist Dr. Monica Fields who did workup for him including MRI of the brain, CT of the brain, EEG and it was unremarkable as per sister, she was told by her neurologist that the patient does not have NPH or seizure-like activity so she advised him to come to emergency room. Patient is lying in bed comfortable, not in distress, barely answers with one or 2 words, like his name only. He does not answer when asked about orientation. However he denies any pain. No headache. No blurred vision. No weakness or numbness. No chest pain. No diarrhea however on the way to the hospital he has 1 episode of loose stool. No urinary complaints. However history is limited by patient mental status. As per he is heavy smoker and he drinks 4-5 drinks of whiskey daily. Vitas looks stable. Patient was noticed to be little bit tachypneic and he is coughing but it's a dry Oxygen saturation is 96-94% on room air. CBC is unremarkable except for mildly elevated platelet count at 553, neutrophil count is elevated at 8.0 and low lymphocyte. Is 1.0. Sodium is slightly low at 132,. BUN is 21 and creatinine 0.9. Glucose 102. Phosphorus is a little high at 4.6. Magnesium 2.3. Liver enzymes and bilirubin are within the reference range. Urinalysis is no suspicious of infections and coronavirus not detected. EKG showing normal sinus rhythm at [address]-T changes His x-rays show an increase interstitial changes throughout the lung with new patchy density periphery of the right lung and posterior base. Further clinical correlation recommended. Some considerations include pulmonary vascular congestion, interstitial pneumonitis and atypical, pneumonia. CT of the brain: Mild generalized atrophy and multiple organ of chronic small vessel ischemic disease. No acute intracranial abnormality seen. In the emergency room patient received breathing treatment, magnesium oxide, 1.5 L of normal saline 03/28/2021 Today patient is confused, even worse than yesterday, yesterday he continues in the hospital were today he is telling me he is in [place]. He could not recognize the name of his sister or if he has a sister. He follows simple commands but not always. His mentation looked worse than yesterday. Neurologist for tumor and sending it and replaced vitamin B12 and B1 for him, they are going to see the patient sporadically. I repeated chest x-ray and showing progressive infiltrates on both sides, however bothconsult on and is not significantly elevated, no fever, no white cell count elevation. Because of this I'm going to order CT of the chest with contrast for better evaluation. Check bothcalcitonin again tomorrow. Objective - Vital Signs Vital signs: Vital Signs Temp 98.8 F 03/28/21 14:18 Pulse 70 03/28/21 14:18 Resp 17 03/28/21 14:18 BP 147/66 03/28/21 14:18 Pulse Ox 93 L 03/28/21 14:18 Intake & Output 03/27/21 03/28/21 03/28/21 18:59 06:59 18:59 Intake Total 300 Output Total 350 350 Balance -50 -350 Weight 70.76 kg 70.76 kg Intake: Oral 300 Output: Urine 350 350 Other: Voiding Method Diaper Diaper External Catheter Incontinent Incontinent # Bowel Movements 1 - Exam -GENERAL: The patient is awake but confused, however is more interactive today, not in any acute distress. Obese HEENT: Pupils are round and equally reacting to light. EOMI. No scleral icterus. No conjunctival pallor. Normocephalic, atraumatic. No pharyngeal erythema. No thyromegaly. CARDIOVASCULAR: S1 and S2 present. No murmurs, rubs, or gallops. PULMONARY: Chest is clear to auscultation, no wheezing or crackles. ABDOMEN: Soft, nontender, nondistended, normoactive bowel sounds. No palpable organomegaly. MUSCULOSKELETAL: No joint swelling or deformity. EXTREMITIES: No cyanosis, clubbing, or pedal edema. NEUROLOGICAL: Gross neurological examination did not reveal any focal deficits. SKIN: No rashes. no petechiae. - Labs CBC & Chem 7: 03/26/21 13:12 03/26/21 13:12 Labs: Microbiology - Last 24 Hours (Table) 03/26/21 13:12 Blood Culture - Preliminary Blood No Growth after 48 hours Assessment and Plan Assessment: Altered mental status, rule out metabolic encephalopathy on the top of his dementia Bilateral pulmonary patchy density on the right lung. Rule out pneumonia versus pulmonary vascular congestion Dementia, could be early Alzheimer dementia , could be also related to alcoholic effect Plan: This is a pleasant 70 years old male who presents with AMS and right patchy density of the lung. Follow-up blood culture. Neurology consult was started the patient on Sinemet and vitamin B12 replacement Continue with gentle hydration CT of the chest with contrast Labs and medication were reviewed.. Continue same treatment. Continue with symptomatic treatment. Resume home medication. Monitor lytes and vitals. DVT and GI prophylaxis. Further recommendations as per clinical course of the patient DVT prophylaxis: Subcutaneous Lovenox GI Prophylaxis: Pepcid Prognosis is guarded Discussed the case with the neurologist
[2021-03-28] MEDS ORDERED: SODIUM CHLORIDE 0.9% 1,000 ML IV SCH (21:00)
[2021-03-28] MEDS: DONEPEZIL 10 MG TAB PO SCH (22:20)
[2021-03-29] MEDS: CARBIDOPA-LEVODOPA 25-100 MG 1 EACH TAB PO SCH ×4 (02:12→20:34)
[2021-03-29] MEDS: THIAMINE 100 MG in SODIUM CHLORIDE 0.9% 50 ML IVPB SCH ×3 (02:12→20:34)
[2021-03-29] MEDS: CYANOCOBALAMIN 1,000 MCG/ML 1 ML VIAL IM SCH (09:27)
[2021-03-29] MEDS: FAMOTIDINE 20 MG/2 ML VIAL IV SCH ×2 (09:27→20:33)
[2021-03-29] MEDS: FOLIC ACID 1 MG TAB PO SCH (09:28)
[2021-03-29] MEDS: ENOXAPARIN 40 MG/0.4 ML SYRINGE SQ SCH (09:28)
[2021-03-29 10:54] LABS: Basophils # (A) 0.06 X 10*3/uL (0.00-0.10); Basophils % (A) 0.8 %; Eosinophils # (A) 0.35 X 10*3/uL (0.04-0.35); Eosinophils % (A) 4.4 %; HCT 35.5 % (39.6-50.0); HGB 11.6 g/dL (13.0-17.0); Lymphocytes # (A) 1.07 X 10*3/uL (0.90-5.00); Lymphocytes % (A) 13.5 %; MCH 28.6 pg (27.0-32.0); MCHC 32.7 g/dL (32.0-37.0); MCV 87.4 fL (80.0-97.0); Mean Platelet Volume 9.3 fL (9.5-12.2); Monocytes # (A) 0.68 X 10*3/uL (0.20-1.00); Monocytes % (A) 8.6 %; Neutrophils # (A) 5.76 X 10*3/uL (1.80-7.70); Neutrophils % (A) 72.3 %; Platelet Count 508 X 10*3/uL (140-440); RBC 4.06 X 10*6/uL (4.40-5.60); WBC 7.95 X 10*3/uL (4.50-10.00)
--- NOTE | 2021-03-29 11:35 | CT ---
EXAMINATION TYPE: CT chest w con DATE OF EXAM: 03/29/2021 COMPARISON: None HISTORY: progressive interstitial infilterate on cxr CT DLP: 424.8 mGycm Automated exposure control for dose reduction was used. TECHNIQUE: CT scan of the chest is performed with IV Contrast, patient injected with 100 mL of Isovue 300. MIP Images are created on CT scanner and reviewed. 3D reconstructed images are created on an independent workstation and reviewed. FINDINGS: LUNGS: There is hazy density/groundglass density in the posterior aspects of both lungs which can be seen with poor inspiratory effort and mild dependent atelectasis. The anterior aspects of both lungs appear normal without interstitial density or mass or consolidation. There are tiny pleural effusions and the heart is moderately enlarged. The great vessels the chest are normal. There are scattered borderline lymph there is a mildly promin ent right hilar lymph node and scattered borderline lymph nodes in the mediastinum. There are borderl ine lymph nodes in the mediastinum and there is one right hilar lymph node which is enlarged measurin g 1.7 cm. The osseous structures are grossly intact. Limited scanning through the upper abdomen reveals no abno rmality. IMPRESSION: No definite interstitial process within the lungs. There is vague density in the posteri or aspects of both lungs as described above. The acute changes within the interstitium based on the p rior chest x-rays obtained over the past couple days suggest possibility of CHF. Clinical correlation short-term follow-up is recommended.
[2021-03-29 12:30] LABS: ALT <8 U/L (10-49); AST 20 U/L (14-35); African American GFR (CKD) 109.3 (60.0-200.0); Albumin/Globulin Ratio 1.58 (1.60-3.17); Alkaline Phosphatase 88 U/L (41-126); BUN/Creat Ratio 21.43 Ratio (12.00-20.00); Carbon Dioxide 23.4 mmol/L (21.6-31.8); Chloride 100 mmol/L (96-109); Globulin 2.4 g/dL (1.6-3.3); Glucose 83 mg/dL (70-110); Non-African American GFR(CKD) 94.3 (60.0-200.0); Potassium 4.3 mmol/L (3.5-5.5); Sodium 132 mmol/L (135-145); Total Bilirubin 0.7 mg/dL (0.2-1.2); Total Protein 6.2 g/dL (6.2-8.2)
--- NOTE | 2021-03-29 14:30 | P.PN ---
Subjective Progress Note Date: 03/29/21 Patient was seen at bedside and the per the patient's nurse and she stated that she hasn't seen a drastic improvement in his tremor after Sinemet. Otherwise she felt he is about the same. Objective - Vital Signs Vital signs: Vital Signs Temp 98.4 F 03/29/21 07:38 Pulse 70 03/29/21 07:38 Resp 14 03/29/21 08:00 BP 163/76 03/29/21 07:38 Pulse Ox 93 L 03/29/21 07:38 Intake & Output 03/28/21 03/29/21 03/29/21 18:59 06:59 18:59 Intake Total 1190 Output Total 300 800 Balance -300 390 Weight 70.76 kg Intake: Intake, IV Titration 950 Amount Sodium Chloride 0.9% 1, 850 000 ml @ 75 mls/hr IV . [id number] [facility] Rx#:[id number] Thiamine 100 mg In Sodium 100 Chloride 0.9% 50 ml @ 100 mls/hr IVPB Q12HR [facility] Rx#:[id number] Oral 240 Output: Urine 300 800 Other: Voiding Method External Catheter External Catheter External Catheter # Bowel Movements 1 - Exam GENERAL: The patient is lying in bed and is not in acute distress. NEUROLOGICAL: Higher mental function: The patient is awake, alert, oriented to self. He stated he is in the hospital but could not tell which. He did not answer for the year. Patient is able to name objects (pen and watch). Patient is f ollowing simple commands. No aphasia and no neglect. Cranial nerves: The pupils are round, equal and reactive to light. Visual smith are full to confrontation throughout. Extraocular movement is intact no nystagmus is noted. Facial sensation is normal to touch throughout. The facial strength is normal throughout. He seems to have flat face. Hearing is moderately decreaased bilaterally to hand rub. Tongue is midline and moved [id number] without any difficulty. No dysarthria is noted. Shoulder shrug is normal bilaterally. Motor: Gait is deferred. The strength is 5- over 5 throughout. Normal tone and bulk. He has resting tremor of the right hand and slight on left (but predominately right). Cerebellum: Could not assess because cooperation. Sensation: Sensation is normal to touch throughout. Reflexes (right/left): 1+ Plantars are downgoing bilaterally. WORK-UP: Routine EEG on 03/27/2021 is normal. There are no focal slowing, epileptiform discharges or seizure on the EEG. MRI the brain is reported as atrophy with chronic appearing periventricular white matter ischemic changes. Video barium swallow: Jc aspiration with thin barium. Delayed amnesia is swa llow mechanism. TSH is 1.92 which is considered normal. Vitamin B12 367 (Normal 200-944). Folic acid 4.5 (>5.38). Hemoglobin A1c is 5.5 which is considered within normal limits. Alcohol level is less than 10 - Labs CBC & Chem 7: 03/29/21 06:14 03/29/21 06:14 Labs: Abnormal Lab Results - Last 24 Hours (Table) 03/29/21 03/29/21 Range/Units 06:14 06:14 RBC 4.06 L (4.40-5.60) X 10*6/uL Hgb 11.6 L (13.0-17.0) g/dL Hct 35.5 L (39.6-50.0) % Plt Count 508 H (140-440) X 10*3/uL MPV 9.3 L (9.5-12.2) fL Sodium 132 L (135-145) mmol/L BUN/Creatinine Ratio 21.43 H (12.00-20.00) Ratio ALT <8 L (10-49) U/L Albumin/Globulin Ratio 1.58 L (1.60-3.17) g/dL Microbiology - Last 24 Hours (Table) 03/26/21 13:12 Blood Culture - Preliminary Blood No Growth after 48 hours Assessment and Plan Assessment: * His altered in mentation could be due to multifactorial: Encephalopathy due to (Pseudomentia) on top for chronic alcohol use, low vitamin B12 and folic deficiency. Also possibly due to Parkinson's dementia vs other types of underlying dementia. * Resting tremor of the right upper extremity. Seems Likely Parkinson's disease. * Folic acid defiency (4.5) * Low Vitamin B12: 367 * Dysphagia (per Barium swallow) * Chronic alcohol use * Chronic nicotine dependence Plan: * Continue Sinement 25-100mg 1 tab tid and increased to 1 tab qid. * Continue vitamin B12 1000 mcg PO daily * Continue folic acid 1 mg daily. * PT, OT and SHE[employer]ING [employer] are consulted. * Patient is on thiamine 100 mg every 12 hours per the primary team. * On his home medication of Aricept 10 mg daily at bedtime * We'll defer the rest of the medical management to the primary team. * Upon discharge the patient needs to follow-up with his neurologist (Dr. Fields) within 1-2 weeks as outpatient. The plan is discussed with the primary attending and his nurse. There is no further work-up. Jose Raul Carlos MD Neuro-Hospitalist Time with Patient: Less than 30
[2021-03-29] MEDS: DONEPEZIL 10 MG TAB PO SCH (20:33)
--- NOTE | 2021-03-29 23:12 | P.PN ---
Subjective This is a pleasant 70 years old male with past medical history of dementia, memory impairment, alcohol abuse. He is a patient of Dr. Cummings. Brought by his sister who is at bedside. She could not provide any information. As per sister patient lives in [place] and last October she she was talking to him on the a phone call and notice he is confused thinking that he saw her the day earlier so she traveled to him and brought him here to [place] she was found up with Dr. Cummings who referred her to neurologist Dr. Monica Fields who did workup for him including MRI of the brain, CT of the brain, EEG and it was unremarkable as per sister, she was told by her neurologist that the patient does not have NPH or seizure-like activity so she advised him to come to emergency room. Patient is lying in bed comfortable, not in distress, barely answers with one or 2 words, like his name only. He does not answer when asked about orientation. However he denies any pain. No headache. No blurred vision. No weakness or numbness. No chest pain. No diarrhea however on the way to the hospital he has 1 episode of loose stool. No urinary complaints. However history is limited by patient mental status. As per he is heavy smoker and he drinks 4-5 drinks of whiskey daily. Vitas looks stable. Patient was noticed to be little bit tachypneic and he is coughing but it's a dry Oxygen saturation is 96-94% on room air. CBC is unremarkable except for mildly elevated platelet count at 553, neutrophil count is elevated at 8.0 and low lymphocyte. Is 1.0. Sodium is slightly low at 132,. BUN is 21 and creatinine 0.9. Glucose 102. Phosphorus is a little high at 4.6. Magnesium 2.3. Liver enzymes and bilirubin are within the reference range. Urinalysis is no suspicious of infections and coronavirus not detected. EKG showing normal sinus rhythm at [address]-T changes His x-rays show an increase interstitial changes throughout the lung with new patchy density periphery of the right lung and posterior base. Further clinical correlation recommended. Some considerations include pulmonary vascular congestion, interstitial pneumonitis and atypical, pneumonia. CT of the brain: Mild generalized atrophy and multiple organ of chronic small vessel ischemic disease. No acute intracranial abnormality seen. In the emergency room patient received breathing treatment, magnesium oxide, 1.5 L of normal saline 03/28/2021 Today patient is confused, even worse than yesterday, yesterday he continues in the hospital were today he is telling me he is in [place]. He could not recognize the name of his sister or if he has a sister. He follows simple commands but not always. His mentation looked worse than yesterday. Neurologist for tumor and sending it and replaced vitamin B12 and B1 for him, they are going to see the patient sporadically. I repeated chest x-ray and showing progressive infiltrates on both sides, however bothconsult on and is not significantly elevated, no fever, no white cell count elevation. Because of this I'm going to order CT of the chest with contrast for better evaluation. Check bothcalcitonin again tomorrow. 03/29/2021 Patient was admitted with a prolonged altered mental status for several months recent deterioration over several days per sister Kailey brought him to the ospital Since admission he showed only mildly improvement in his mentation. This confused Laura suspect he has dementia secondary to B12 deficiency and Parkinson disease given his resting tremor in his right hand. Patient was started on vitamin B12 replacement and senimet which is increased dose today as there is no significant improvement in his hand tremor However patient also noticed to have mildly hypoxic and on the CT of the chest that is bilateral interstitial infiltrates with some lymphadenopathy. Pulmonary team were consulted to rule out metabolic element for his encephalopathy -CT of the chest with IV contrast showing no definite interstitial process within the lungs. There is vague density in the posterior aspects of both lungs. CHF is suspected however BNP is low on admission. Patient does not look fluid overloaded. Patient also noticed to have enlarged right hilar lymphadenopathy 1.7 cm However prognosis remains guarded Objective - Vital Signs Vital signs: Vital Signs Temp 98.4 F 03/29/21 14:28 Pulse 70 03/29/21 14:28 Resp 17 03/29/21 14:28 BP 129/65 03/29/21 14:28 Pulse Ox 93 L 03/29/21 14:28 Intake & Output 03/29/21 03/29/21 03/30/21 06:59 18:59 06:59 Intake Total 1190 290 Output Total 800 Balance 390 290 Intake: Intake, IV Titration 950 50 Amount Sodium Chloride 0.9% 1, 850 000 ml @ 75 mls/hr IV . [id number] [facility] Rx#:[id number] Thiamine 100 mg In Sodium 100 50 Chloride 0.9% 50 ml @ 100 mls/hr IVPB Q12HR [facility] Rx#:[id number] Oral 240 240 Output: Urine 800 Other: Voiding Method External Catheter External Catheter - Exam -GENERAL: The patient is awake but confused, however is more interactive today, not in any acute distress. Obese HEENT: Pupils are round and equally reacting to light. EOMI. No scleral icterus. No conjunctival pallor. Normocephalic, atraumatic. No pharyngeal erythema. No thyromegaly. CARDIOVASCULAR: S1 and S2 present. No murmurs, rubs, or gallops. PULMONARY: Chest is clear to auscultation, no wheezing or crackles. ABDOMEN: Soft, nontender, nondistended, normoactive bowel sounds. No palpable organomegaly. MUSCULOSKELETAL: No joint swelling or deformity. EXTREMITIES: No cyanosis, clubbing, or pedal edema. NEUROLOGICAL: Gross neurological examination did not reveal any focal deficits. SKIN: No rashes. no petechiae. - Labs CBC & Chem 7: 03/29/21 06:14 03/29/21 06:14 Labs: Abnormal Lab Results - Last 24 Hours (Table) 03/29/21 03/29/21 Range/Units 06:14 06:14 RBC 4.06 L (4.40-5.60) X 10*6/uL Hgb 11.6 L (13.0-17.0) g/dL Hct 35.5 L (39.6-50.0) % Plt Count 508 H (140-440) X 10*3/uL MPV 9.3 L (9.5-12.2) fL Sodium 132 L (135-145) mmol/L BUN/Creatinine Ratio 21.43 H (12.00-20.00) Ratio ALT <8 L (10-49) U/L Albumin/Globulin Ratio 1.58 L (1.60-3.17) g/dL Microbiology - Last 24 Hours (Table) 03/26/21 13:12 Blood Culture - Preliminary Blood No Growth after 72 hours Assessment and Plan Assessment: Altered mental status, rule out metabolic encephalopathy on the top of his dementia Bilateral pulmonary patchy density with hilar lymphadenopathy Dementia, could be early Alzheimer dementia , could be also related to alcoholic effect Plan: This is a pleasant 70 years old male who presents with AMS and right patchy density of the lung. Follow-up blood culture. Neurology consult was started the patient on Sinemet and vitamin B12 replacement Consult pulmonary service Labs and medication were reviewed.. Continue same treatment. Continue with symptomatic treatment. Resume home medication. Monitor lytes and vitals. DVT and GI prophylaxis. Further recommendations as per clinical course of the patient DVT prophylaxis: Subcutaneous Lovenox GI Prophylaxis: Pepcid Prognosis is guarded Discussed the case with the neurologist
[2021-03-30] MEDS: ENOXAPARIN 40 MG/0.4 ML SYRINGE SQ SCH (09:09)
[2021-03-30] MEDS: CARBIDOPA-LEVODOPA 25-100 MG 1 EACH TAB PO SCH ×2 (09:09→16:21)
[2021-03-30] MEDS: FOLIC ACID 1 MG TAB PO SCH (09:09)
[2021-03-30] MEDS: CYANOCOBALAMIN 1,000 MCG/ML 1 ML VIAL IM SCH (09:10)
[2021-03-30] MEDS: FAMOTIDINE 20 MG/2 ML VIAL IV SCH ×2 (09:10→21:05)
[2021-03-30] MEDS: THIAMINE 100 MG in SODIUM CHLORIDE 0.9% 50 ML IVPB SCH ×2 (09:53→21:05)
[2021-03-30 11:53] LABS: Basophils # (A) 0.1 k/uL (0-0.2); Basophils % (A) 1 %; Eosinophils # (A) 0.4 k/uL (0-0.7); Eosinophils % (A) 4 %; HCT 38.7 % (39.0-53.0); HGB 13.2 gm/dL (13.0-17.5); Lymphocytes # (A) 0.9 k/uL (1.0-4.8); Lymphocytes % (A) 10 %; MCH 28.9 pg (25.0-35.0); MCHC 34.2 g/dL (31.0-37.0); MCV 84.4 fL (80.0-100.0); Mean Platelet Volume 6.8; Monocytes # (A) 0.5 k/uL (0-1.0); Monocytes % (A) 6 %; Neutrophils # (A) 7.4 k/uL (1.3-7.7); Neutrophils % (A) 79 %; Platelet Count 550 k/uL (150-450); RBC 4.58 m/uL (4.30-5.90); RDW 12.2 % (11.5-15.5); WBC 9.3 k/uL (3.8-10.6)
[2021-03-30 12:13] LABS: African American GFR (CKD) >90 (>60 ml/min/1.73 sqM); Anion Gap 8 mmol/L; Blood Urea Nitrogen 16 mg/dL (9-20); Calcium 9.9 mg/dL (8.4-10.2); Carbon Dioxide 28 mmol/L (22-30); Chloride 96 mmol/L (98-107); Glucose 97 mg/dL (74-99); Non-African American GFR(CKD) >90 (>60 ml/min/1.73 sqM); Potassium 4.7 mmol/L (3.5-5.1); Sodium 132 mmol/L (137-145)
--- NOTE | 2021-03-30 14:36 | P.CNPUL ---
History of Present Illness Consult date: 03/30/21 Requesting physician: Roderick E Sheet Reason for consult: hypoxemia, pneumonia, abnormal CXR/CT, other Chief complaint: Increased interstitial pneumonitis, chronic aspiration History of present illness: This is a 70-year-old white male patient, appears to be chronically debilitated, and we're told by the nursing staff that has recently been noted to be physically declining. Patient has a past history of alcoholism, current every day smoker, dementia. Patient was brought in to the hospital by his sister 03/26/2021 for evaluation of clinical decline, mental status changes, weakness. His sister relocated him to [place] from [place] in November 2020. He has been diagnosed with dementia. He had full workup including an EEG, computed tomography scan of the brain, MRI scan of the brain. He saw a local neurologist just prior to his emergency department presentation who had sent him to the hospital. According to patient's sister patient has drank alcohol significant throughout his lifetime. Most recently patient has not been able to ambulate on his own. He has a chronic cough. There is no reported fever or chills, no reported trauma or head injuries. His brain CT on admission showed mild generalized atrophy, mild burden of chronic small vessel ischemic disease, no acute intracranial abnormality was noted. His chest x-ray on admission showed increased interstitial changes throughout the lung smith along with new patchy densities in the periphery of the right lung and posterior base. The considerations included pulmonary vessel congestion, interstitial pneumonitis or atypical/COVID pneumonia. COVID-19 pneumonia was ruled out per negative PCR test. Patient had a normal white count on admission blood work with the white blood cell count of 10.1, hemoglobin was 13.7, platelet count was 553, coagulation profile was within normal limits, sodium was 132, potassium is 4.9, chloride is 97, B1 is 21 creatinine 0.59, troponin was negative at less than 0.012, proBNP was 140, calcitonin level was low at 0.11, TSH level was within normal limits at 1.920, urinalysis showed trace ketones but no evidence of infection, serum alcohol level was less than 10. Patient's mentation is obtunded, but he is arousable to verbal stimulation, his speech is slurred, he is falling back asleep. Patient underwent neurological evaluation, brain MRI showed atrophy with chronic appearing periventricular white matter ischemic changes. Patient had a swallow evaluation and was noted to be frankly aspirating with thin liquids, and having delayed initiation of swallow mechanism. His EEG showed no evidence of focal slowing, epileptiform discharges. Patient was seen by speech therapy, and he is currently on dysphagia level III diet with nectar thick liquids. CT chest with contrast was completed showing no definite interstitial process within the lungs, and showing a vague density in the posterior aspect of both lungs. He appears to be breathing comfortably, appears to be in no acute distress, room air pulse ox is 91-96%, his been afebrile, not on any antibiotics currently, his lab work today shows normal white count of 9.3, and his repeat pro calcitonin was again low at 0.08 Review of Systems All systems: negative Constitutional: Reports anorexia, Reports weakness, Denies chills, Denies fever Eyes: denies blurred vision, denies pain Ears, nose, mouth and throat: Denies headache, Denies sore throat Cardiovascular: Denies chest pain, Denies shortness of breath Respiratory: Denies cough Gastrointestinal: Denies abdominal pain, Denies diarrhea, Denies nausea, Denies vomiting Musculoskeletal: Denies myalgias Integumentary: Denies pruritus, Denies rash Neurological: Reports balance difficulties, Reports change in mentation, Reports confusion, Reports gait dysfunction, Reports weakness, Denies numbness Psychiatric: Denies anxiety, Denies depression Endocrine: Denies fatigue, Denies weight change Past Medical History Past Medical History: Dementia, Memory Impairment, Musculoskeletal Disorder Additional Past Medical History / Comment(s): Hx ETOH, smoker History of Any Multi-Drug Resistant Organisms: None Reported Past Surgical History: Hernia Repair Past Anesthesia/Blood Transfusion Reactions: No Reported Reaction Past Psychological History: No Psychological Hx Reported Smoking Status: Former smoker Past Alcohol Use History: Abuse Past Drug Use History: None Reported - Past Family History Father Family Medical History: CVA/TIA Medications and Allergies Home Medications Medication Instructions Recorded Confirmed Type Donepezil [Aricept] 10 mg PO HS 03/26/21 03/26/21 History Allergies Allergy/AdvReac Type Severity Reaction Status Date / Time No Known Allergies Allergy Verified 03/26/21 13:27 Physical Exam Vitals: Vital Signs Temp Pulse Resp BP Pulse Ox 03/30/21 08:11 98.5 F 65 17 146/84 91 L 03/30/21 08:00 17 06/28/21 02:48 97.6 F 72 17 183/81 96 03/29/21 20:00 98.4 F 73 15 159/82 93 L 03/29/21 14:28 98.4 F 70 17 129/65 93 L Intake and Output 03/29/21 03/30/21 03/30/21 22:59 06:59 14:59 Intake Total 290 Balance 290 Intake: Intake, IV Titration 50 Amount Thiamine 100 mg In Sodium 50 Chloride 0.9% 50 ml @ 100 mls/hr IVPB Q12HR [facility] Rx#:[id number] Oral 240 Other: Voiding Method External Catheter External Catheter # Voids 1 GENERAL EXAM: Lethargic, arousable to repeated verbal stimuli, there is back to sleep, speech is mumbled difficult to understand, appears to be in no acute distress, currently on room air with a pulse ox of 90-91%, comfortable in no apparent distress. HEAD: Normocephalic/atraumatic. EYES: Normal reaction of pupils, equal size. Conjunctiva pink, sclera white. NOSE: Clear with pink turbinates. THROAT: No erythema or exudates. NECK: No masses, no JVD, no thyroid enlargement, no adenopathy. CHEST: No chest wall deformity. Symmetrical expansion. LUNGS: Equal air entry with diminished breath sounds CVS: Regular rate and rhythm, normal S1 and S2, no gallops, no murmurs, no rubs ABDOMEN: Soft, nontender. No hepatosplenomegaly, normal bowel sounds, no guarding or rigidity. EXTREMITIES: No clubbing, no edema, no cyanosis, 2+ pulses and upper and lower extremities. MUSCULOSKELETAL: Muscle strength and tone normal. SPINE: No scoliosis or deformity SKIN: No rashes CENTRAL NERVOUS SYSTEM: Lethargic No focal deficits, tone is normal in all 4 extremities. Results - Laboratory Findings CBC and BMP: 03/30/21 11:42 03/30/21 11:42 ABG ABG pH 7.46 (7.35-7.45) H 03/27/21 02:00 ABG pCO2 35 mmHg (35-45) 03/27/21 02:00 ABG pO2 61 mmHg (83-108) L 03/27/21 02:00 ABG O2 Saturation 91.8 % (94-97) L 03/27/21 02:00 PT/INR, D-dimer PT 10.3 sec (9.0-12.0) 03/26/21 13:12 INR 1.0 (<1.2) 03/26/21 13:12 Abnormal lab findings: Abnormal Labs 03/26/21 03/26/21 03/26/21 13:12 13:12 13:12 RBC Hgb Hct Plt Count 553 H MPV Neutrophils # 8.0 H Lymphocytes # 0.8 L ABG pH ABG pO2 ABG Total CO2 ABG O2 Saturation Sodium 132 L Chloride 97 L BUN 21 H Creatinine 0.59 L BUN/Creatinine Ratio Glucose 102 H Phosphorus 4.6 H ALT Albumin/Globulin Ratio Procalcitonin Urine Ketones Trace H 03/26/21 03/27/21 03/29/21 21:49 02:00 06:14 RBC 4.06 L Hgb 11.6 L Hct 35.5 L Plt Count 508 H MPV 9.3 L Neutrophils # Lymphocytes # ABG pH 7.46 H ABG pO2 61 L ABG Total CO2 26 H ABG O2 Saturation 91.8 L Sodium Chloride BUN Creatinine BUN/Creatinine Ratio Glucose Phosphorus ALT Albumin/Globulin Ratio Procalcitonin 0.11 H Urine Ketones 03/29/21 03/30/21 03/30/21 06:14 11:42 11:42 RBC Hgb Hct 38.7 L Plt Count 550 H MPV Neutrophils # Lymphocytes # 0.9 L ABG pH ABG pO2 ABG Total CO2 ABG O2 Saturation Sodium 132 L 132 L Chloride 96 L BUN Creatinine 0.59 L BUN/Creatinine Ratio 21.43 H Glucose Phosphorus ALT <8 L Albumin/Globulin Ratio 1.58 L Procalcitonin Urine Ketones - Diagnostic Findings Chest x-ray: report reviewed, image reviewed CT scan - chest: report reviewed, image reviewed Additional studies: Brain CT results, MBS swallow study results, EEG results reviewed Assessment and Plan Plan: Assessment: #1. Altered mental status, , multifactorial, related to chronic alcohol use, vitamin deficiency, Parkinson's dementia #2. Chronic aspiration, without infection #3. Dysphagia, patient had the MBS that showed alverto aspiration with thin liquids #4. Chronic alcohol abuse, currently in remission #5. Chronic nicotine dependence #6. Recent physical decline #7. Gait dysfunction Plan: Continue current medical treatment Maintain aspiration precautions All diagnostics, chest x-rays, computed tomography scan of the chest, lab work reviewed No clear evidence of infection, both pro calcitonin levels were negative No fever or chills, no leukocytosis Patient is still lethargic, would recommend holding oral feeding if his level of consciousness is depressed We'll continue to follow I performed a history & physical examination of the patient and discussed their management with my nurse practitioner, Kim Canales. I reviewed the nurse practitioner's note and agree with the documented findings and plan of care. Lung sounds are positive for diminished breath sounds. The findings and the impression was discussed with the patient. I attest to the documentation by the nurse practitioner. Time with Patient: Greater than 30
[2021-03-30] MEDS: DONEPEZIL 10 MG TAB PO SCH ×2 (21:05→21:07)
[2021-03-31] MEDS: CARBIDOPA-LEVODOPA 25-100 MG 1 EACH TAB PO SCH ×4 (00:49→18:18)
[2021-03-31 07:32] VITALS: PULSE 87
[2021-03-31] MEDS: ENOXAPARIN 40 MG/0.4 ML SYRINGE SQ SCH (09:29)
[2021-03-31] MEDS: FAMOTIDINE 20 MG/2 ML VIAL IV SCH (09:29)
[2021-03-31] MEDS: FOLIC ACID 1 MG TAB PO SCH (09:29)
[2021-03-31] MEDS: CYANOCOBALAMIN 1,000 MCG/ML 1 ML VIAL IM SCH (09:31)
[2021-03-31] MEDS: THIAMINE 100 MG in SODIUM CHLORIDE 0.9% 50 ML IVPB SCH (09:33)
--- NOTE | 2021-03-31 10:45 | P.PN ---
Subjective Progress Note Date: 03/31/21 Principal diagnosis: Aspiration pneumonia. This is a 70-year-old white male patient, appears to be chronically debilitated, and we're told by the nursing staff that has recently been noted to be physically declining. Patient has a past history of alcoholism, current every day smoker, dementia. Patient was brought in to the hospital by his sister 03/26/2021 for evaluation of clinical decline, mental status changes, weakness. His sister relocated him to [place] from [place] in November 2020. He has been diagnosed with dementia. He had full workup including an EEG, computed tomography scan of the brain, MRI scan of the brain. He saw a local neurologist just prior to his emergency department presentation who had sent him to the hospital. According to patient's sister patient has drank alcohol significant throughout his lifetime. Most recently patient has not been able to ambulate on his own. He has a chronic cough. There is no reported fever or chills, no r eported trauma or head injuries. His brain CT on admission showed mild generalized atrophy, mild burden of chronic small vessel ischemic disease, no acute intracranial abnormality was noted. His chest x-ray on admission showed increased interstitial changes throughout the lung smith along with new patchy densities in the periphery of the right lung and posterior base. The considerations included pulmonary vessel congestion, interstitial pneumonitis or atypical/COVID pneumonia. COVID-19 pneumonia was ruled out per negative PCR test. Patient had a normal white count on admission blood work with the white blood cell count of 10.1, hemoglobin was 13.7, platelet count was 553, coagulation profile was within normal limits, sodium was 132, potassium is 4.9, chloride is 97, B1 is 21 creatinine 0.59, troponin was negative at less than 0.012, proBNP was 140, calcitonin level was low at 0.11, TSH level was within normal limits at 1.920, urinalysis showed trace ketones but no evidence of inf ection, serum alcohol level was less than 10. Patient's mentation is obtunded, but he is arousable to verbal stimulation, his speech is slurred, he is falling back asleep. Patient underwent neurological evaluation, brain MRI showed atrophy with chronic appearing periventricular white matter ischemic changes. Patient had a swallow evaluation and was noted to be frankly aspirating with thin liquids, and having delayed initiation of swallow mechanism. His EEG showed no evidence of focal slowing, epileptiform discharges. Patient was seen by speech therapy, and he is currently on dysphagia level III diet with nectar thick liquids. CT chest with contrast was completed showing no definite int erstitial process within the lungs, and showing a vague density in the posterior aspect of both lungs. He appears to be breathing comfortably, appears to be in no acute distress, room air pulse ox is 91-96%, his been afebrile, not on any antibiotics currently, his lab work today shows normal white count of 9.3, and his repeat pro calcitonin was again low at 0.08 Progress note dated 03/31/2021. 70-year-old male, quite debilitated, and looking much older than his stated age, was seen in evaluation yesterday for mental status changes, chronic alcohol abuse, vitamin deficiency, our concerns dementia, and probable chronic aspiration. We were initially asked to see the patient for possible int erstitial lung disease. That is likely not the proper diagnosis. The patient apparently is going to have a palliative care consultation or hospice consultation in the near future. The patient is very poorly responsive. White count 9.3, hemoglobin 13.2, hematocrit 38.7, platelet count 550,000. Sodium 132, potassium 4.7, chlorides 96, CO2 28, BUN 16, creatinine 0.59. Computed tomography scan of the chest was reviewed. It showed no definite interstitial process within the lungs. Objective - Vital Signs Vital signs: Vital Signs Temp 98.3 F 03/31/21 07:31 Pulse 87 03/31/21 07:31 Resp 14 03/31/21 07:31 BP 166/85 03/31/21 07:31 Pulse Ox 90 L 03/31/21 07:31 Intake & Output 03/30/21 03/31/21 03/31/21 18:59 06:59 18:59 Intake Total 950 100 Balance 950 100 Intake: IV 50 Thiamine 100 mg In Sodium 50 Chloride 0.9% 50 ml @ 100 mls/hr IVPB Q12HR [facility] Rx#:[id number] Intake, IV Titration 100 Amount Thiamine 100 mg In Sodium 100 Chloride 0.9% 50 ml @ 100 mls/hr IVPB Q12HR [facility] Rx#:[id number] Oral 900 0 Other: Voiding Method External Catheter External Catheter Diaper Incontinent # Voids 1 3 - Exam No acute distress, poorly responsive and lethargic. HEENT examination is grossly unremarkable. Neck supple. Full range of motion. No adenopathy thyromegaly or neck vein distention. Cardiovascular examination reveals regular rhythm rate. S1-S2 normal. No S3 or S4. No discernible murmur noted. Lungs reveal mostly clear breath sounds. Breath sounds are equal bilaterally. Mild scattered rhonchi are noted. There are no wheezes or crackles. Abdomen soft bowel sounds are heard. No masses or tenderness. Extremities are intact. No cyanosis clubbing or edema. Skin is without rash or lesion. Neurologic examination reveals the patient to be lethargic. He is poorly responsive. He does move all 4 extremities. - Labs CBC & Chem 7: 03/30/21 11:42 03/30/21 11:42 Labs: Abnormal Lab Results - Last 24 Hours (Table) 03/30/21 03/30/21 Range/Units 11:42 11:42 Hct 38.7 L (39.0-53.0) % Plt Count 550 H (150-450) k/uL Lymphocytes # 0.9 L (1.0-4.8) k/uL Sodium 132 L (137-145) mmol/L Chloride 96 L (98-107) mmol/L Creatinine 0.59 L (0.66-1.25) mg/dL Microbiology - Last 24 Hours (Table) 03/26/21 13:12 Blood Culture - Preliminary Blood No Growth after 96 hours Assessment and Plan Assessment: #1. Altered mental status, , multifactorial, related to chronic alcohol use, vitamin deficiency, Parkinson's dementia #2. Chronic aspiration, without infection #3. Dysphagia, patient had the MBS that showed alverto aspiration with thin liquids #4. Chronic alcohol abuse, currently in remission #5. Chronic nicotine dependence #6. Recent physical decline #7. Gait dysfunction Plan: Plan dated 03/31/2021. The patient should be an aspiration precautions. Head of bed elevated all times. The nurses did mention that the patient was going to be seen by palliative care/hospice services. Additional recommendations and suggestions are forthcoming. We will see the patient moving forward as needed. No clear evidence of infection at this time. Pro-calcitonin levels 2 were negative. Time with Patient: Less than 30
[2021-03-31 14:16] LABS: African American GFR (CKD) 109.3 (60.0-200.0); Anion Gap 10.6 mmol/L (4.00-12.00); BUN/Creat Ratio 27.14 Ratio (12.00-20.00); Calcium 9.8 mg/dL (8.7-10.3); Carbon Dioxide 24.4 mmol/L (21.6-31.8); Non-African American GFR(CKD) 94.3 (60.0-200.0); Potassium 4.5 mmol/L (3.5-5.5)
[2021-03-31 15:21] VITALS: BP 146/77; RESP 16; TEMP 98.5
--- NOTE | 2021-03-31 16:01 | P.PN ---
Subjective Progress Note Date: 03/30/21 Principal diagnosis: Altered mental status due to metabolic encephalopathy and underlying dementia and vitamin D deficiency. This is a pleasant 70 years old male with past medical history of dementia, memory impairment, alcohol abuse. He is a patient of Dr. Cummings. Brought by his sister who is at bedside. She could not provide any information. As per sister patient lives in [place] and last October she she was talking to him on the a phone call and notice he is confused thinking that he saw her the day earlier so she traveled to him and brought him here to [place] she was found up with Dr. Cummings who referred her to neurologist Dr. Monica Fields who did workup for him including MRI of the brain, CT of the brain, EEG and it was unremarkable as per sister, she was told by her neurologist that the patient does not have NPH or seizure-like activity so she advised him to come to emergency room. Patient is lying in bed comfortable, not in distress, barely answers with one or 2 words, like his name only. He does not answer when asked about orientation. However he denies any pain. No headache. No blurred vision. No weakness or numbness. No chest pain. No diarrhea however on the way to the hospital he has 1 episode of loose stool. No urinary complaints. However history is limited by patient mental status. As per he is heavy smoker and he drinks 4-5 drinks of whiskey daily. Vitas looks stable. Patient was noticed to be little bit tachypneic and he is coughing but it's a dry Oxygen saturation is 96-94% on room air. CBC is unremarkable except for mildly elevated platelet count at 553, neutrophil count is elevated at 8.0 and low lymphocyte. Is 1.0. Sodium is slightly low at 132,. BUN is 21 and creatinine 0.9. Glucose 102. Phosphorus is a little high at 4.6. Magnesium 2.3. Liver enzymes and bilirubin are within the reference range. Urinalysis is no suspicious of infections and coronavirus not detected. EKG showing normal sinus rhythm at [address]-T changes His x-rays show an increase interstitial changes throughout the lung with new patchy density periphery of the right lung and posterior base. Further clinical correlation recommended. Some considerations include pulmonary vascular congestion, interstitial pneumonitis and atypical, pneumonia. CT of the brain: Mild generalized atrophy and multiple organ of chronic small vessel ischemic disease. No acute intracranial abnormality seen. In the emergency room patient received breathing treatment, magnesium oxide, 1.5 L of normal saline 03/28/2021 Today patient is confused, even worse than yesterday, yesterday he continues in the hospital were today he is telling me he is in [place]. He could not recognize the name of his sister or if he has a sister. He follows simple commands but not always. His mentation looked worse than yesterday. Neurologist for tumor and sending it and replaced vitamin B12 and B1 for him, they are going to see the patient sporadically. I repeated chest x-ray and showing progressive infiltrates on both sides, h owever bothconsult on and is not significantly elevated, no fever, no white cell count elevation. Because of this I'm going to order CT of the chest with contrast for better evaluation. Check bothcalcitonin again tomorrow. 03/29/2021 Patient was admitted with a prolonged altered mental status for several months recent deterioration over several days per sister Kailey brought him to the hospital Since admission he showed only mildly improvement in his mentation. This confused Laura suspect he has dementia secondary to B12 deficiency and Parkinson disease given his resting tremor in his right hand. Patient was started on vitamin B12 replacement and senimet which is increased dose today as there is no significant improvement in his hand tremor However patient also noticed to have mildly hypoxic and on the CT of the chest that is bilateral interstitial infiltrates with some lymphadenopathy. Pulmonary team were consulted to rule out metabolic element for his encephalopathy -CT of the chest with IV contrast showing no definite interstitial process within the lungs. There is vague density in the posterior aspects of both lungs. CHF is suspected however BNP is low on admission. Patient does not look fluid overloaded. Patient also noticed to have enlarged right hilar lymph adenopathy 1.7 cm However prognosis remains guarded 03/30/2021 Patient is currently lying in the bed comfortably. Awake but confused and lethargic and altered mentation. Current is to have right upper extremity tremors. Patient was started on Sinemet and also being continued on vitamin B12 and thiamine replacement. Patient was seen by neurology due to altered mental status and workup has been n egative. Patient has underlying progressive dementia. Patient does have aspiration with thin liquids as per MBS. Pulmonary is consulted due to interstitial process but which is unlikely. Upon discussion with the family regarding his further treatment goals, family would like to consider palliative care and hospice care at home. Patient does have poor prognosis. current medications reviewed. Objective - Vital Signs Vital signs: Vital Signs Temp 98.2 F 03/30/21 14:00 Pulse 73 03/30/21 14:00 Resp 16 03/30/21 14:00 BP 168/86 03/30/21 14:00 Pulse Ox 92 L 03/30/21 14:00 Intake & Output 03/30/21 03/30/21 03/31/21 06:59 18:59 06:59 Intake Total 950 Balance 950 Intake: IV 50 Thiamine 100 mg In Sodium 50 Chloride 0.9% 50 ml @ 100 mls/hr IVPB Q12HR [facility] Rx#:[id number] Oral 900 Other: Voiding Method External Catheter External Catheter # Voids 1 1 - Exam -GENERAL: The patient is awake but confused, however is more interactive today, not in any acute distress. Obese HEENT: Pupils are round and equally reacting to light. EOMI. No scleral icterus. No conjunctival pallor. Normocephalic, atraumatic. No thyromegaly. CARDIOVASCULAR: S1 and S2 present. No murmurs, rubs, or gallops. PULMONARY: Chest is clear to auscultation, no wheezing or crackles. ABDOMEN: Soft, nontender, nondistended, normoactive bowel sounds. No palpable organomegaly. MUSCULOSKELETAL: No joint swelling or deformity. EXTREMITIES: No cyanosis, clubbing, or pedal edema. NEUROLOGICAL: Gross neurological examination did not reveal any focal deficits. SKIN: No rashes. no petechiae. - Labs CBC & Chem 7: 03/30/21 11:42 03/31/21 05:51 Labs: Abnormal Lab Results - Last 24 Hours (Table) 03/30/21 03/30/21 Range/Units 11:42 11:42 Hct 38.7 L (39.0-53.0) % Plt Count 550 H (150-450) k/uL Lymphocytes # 0.9 L (1.0-4.8) k/uL Sodium 132 L (137-145) mmol/L Chloride 96 L (98-107) mmol/L Creatinine 0.59 L (0.66-1.25) mg/dL Microbiology - Last 24 Hours (Table) 03/26/21 13:12 Blood Culture - Preliminary Blood No Growth after 96 hours Assessment and Plan Assessment: Altered mental status, due to metabolic encephalopathy on the top of his dementia. Patient also has vitamin deficiency. Chronic aspiration without infection. MBS showed alverto aspiration with thin liquids. Right upper extremity tremors. Bilateral pulmonary patchy density with hilar lymphadenopathy Dementia, could be early Alzheimer dementia , could be also related to alcoholic effect History of Chronic alcohol abuse. Grade dysfunction. DVT prophylaxis. Plan: This is a pleasant 70 years old male who presents with AMS and right patchy density of the lung. Follow-up blood culture. Neurology consult was started the patient on Sinemet and vitamin B12 replacement Consult pulmonary service Labs and medication were reviewed.Continue with symptomatic treatment. Resume home medication. Monitor lytes and vitals. DVT and GI prophylaxis. DVT prophylaxis: Subcutaneous Lovenox GI Prophylaxis: Pepcid Prognosis is poor at this time. Discussed the case with the neurologist Time with Patient: Greater than 30
[2021-03-31] MEDS ORDERED: FAMOTIDINE 20 MG TAB PO SCH (21:00)
--- NOTE | 2021-04-16 08:48 | P.DS ---
Providers Date of admission: 03/26/21 16:06 Expected date of discharge: 03/31/21 Attending physician: Roderick Wang MD Consults: 03/26/21 16:07 Consult Physician Urgent Consulting Provider: Jose Raul Carlos Consult Reason/Comments: MS changes, weakness Do you want consulting provider notified?: Yes 03/29/21 13:14 Consult Physician Routine Consulting Provider: [place] Watson Consult Reason/Comments: interstitial karmen disease with mild hypoxia Do you want consulting provider notified?: Yes [facility] Course: Discharge diagnosis Altered mental status, due to metabolic encephalopathy on the top of his dementia. Patient also has vitamin deficiency. Chronic aspiration without infection. MBS showed alverto aspiration with thin liquids. Right upper extremity tremors. Bilateral pulmonary patchy density with hilar lymphadenopathy Dementia, could be early Alzheimer dementia , could be also related to alcoholic effect History of Chronic alcohol abuse. Grade dysfunction. DVT prophylaxis. Hodpital course This is a pleasant 70 years old male with past medical history of dementia, memory impairment, alcohol abuse. He is a patient of Dr. Cummings. Brought by his sister who is at bedside. She could not provide any information. As per sister patient lives in [place] and last October she she was talking to him on the a phone call and notice he is confused thinking that he saw her the day earlier so she traveled to him and brought him here to [place] she was found up with Dr. Cummings who referred her to neurologist Dr. Monica Fields who did workup for him including MRI of the brain, CT of the brain, EEG and it was unremarkable as per sister, she was told by her neurologist that the patient does not have NPH or seizure-like activity so she advised him to come to emergency room. Patient is lying in bed comfortable, not in distress, barely answers with one or 2 words, like his name only. He does not answer when asked about orientation. However he denies any pain. No headache. No blurred vision. No weakness or numbness. No chest pain. No diarrhea however on the way to the hospital he has 1 episode of loose stool. No urinary complaints. However history is limited by patient mental status. As per he is heavy smoker and he drinks 4-5 drinks of whiskey daily. Vitas looks stable. Patient was noticed to be little bit tachypneic and he is coughing but it's a dry Oxygen saturation is 96-94% on room air. CBC is unremarkable except for mildly elevated platelet count at 553, neutrophil count is elevated at 8.0 and low lymphocyte. Is 1.0. Sodium is slightly low at 132,. BUN is 21 and creatinine 0.9. Glucose 102. Phosphorus is a little high at 4.6. Magnesium 2.3. Liver enzymes and bilirubin are within the reference range. Urinalysis is no suspicious of infections and coronavirus not detected. EKG showing normal sinus rhythm at [address]-T changes His x-rays show an increase interstitial changes throughout the lung with new patchy density periphery of the right lung and posterior base. Further clinical correlation recommended. Some considerations include pulmonary vascular congestion, interstitial pneumonitis and atypical, pneumonia. CT of the brain: Mild generalized atrophy and multiple organ of chronic small vessel ischemic disease. No acute intracranial abnormality seen. In the emergency room patient received breathing treatment, magnesium oxide, 1.5 L of normal saline 03/28/2021 Today patient is confused, even worse than yesterday, yesterday he continues in the hospital were today he is telling me he is in [place]. He could not recognize the name of his sister or if he has a sister. He follows simple commands but not always. His mentation looked worse than yesterday. Neurologist for tumor and sending it and replaced vitamin B12 and B1 for him, they are going to see the patient sporadically. I repeated chest x-ray and showing progressive infiltrates on both sides, however bothconsult on and is not significantly elevated, no fever, no white cell count elevation. Because of this I'm going to order CT of the chest with contrast for better evaluation. Check bothcalcitonin again tomorrow. 03/29/2021 Patient was admitted with a prolonged altered mental status for several months recent deterioration over several days per sister Kailey brought him to the hospital Since admission he showed only mildly improvement in his mentation. This confused Laura suspect he has dementia secondary to B12 deficiency and Parkinson disease given his resting tremor in his right hand. Patient was started on vitamin B12 replacement and senimet which is increased dose today as there is no significant improvement in his hand tremor However patient also noticed to have mildly hypoxic and on the CT of the chest that is bilateral interstitial infiltrates with some lymphadenopathy. Pulmonary team were consulted to rule out metabolic element for his encephalopathy -CT of the chest with IV contrast showing no definite interstitial process within the lungs. There is vague density in the posterior aspects of both lungs. CHF is suspected however BNP is low on admission. Patient does not look fluid overloaded. Patient also noticed to have enlarged right hilar lymphadenopathy 1.7 cm However prognosis remains guarded 03/30/2021 Patient is currently lying in the bed comfortably. Awake but confused and lethargic and altered mentation. Current is to have right upper extremity tremors. Patient was started on Sinemet and also being continued on vitamin B12 and thiamine replacement. Patient was seen by neurology due to altered mental status and workup has been negative. Patient has underlying progressive dementia. Patient does have aspiration with thin liquids as per MBS. Pulmonary is consulted due to interstitial process but which is unlikely. Upon discussion with the family regarding his further treatment goals, family would like to consider palliative care and hospice care at home. Patient does have poor prognosis. 03/31/21 Patient is currently resting in the bed comfortably. Confused with altered mental status. Continued on thiamine and multivitamins and also started on Sinemet as per neurology recommendations. Patient does have underlying progressive dementia and chronic aspiration as per MBS. Family is considering p alliative care at home. Patient is being discharged today. - Exam -GENERAL: The patient is awake but confused, however is more interactive today, not in any acute distress. Obese HEENT: Pupils are round and equally reacting to light. EOMI. No scleral icterus. No conjunctival pallor. Normocephalic, atraumatic. No thyromegaly. CARDIOVASCULAR: S1 and S2 present. No murmurs, rubs, or gallops. PULMONARY: Chest is clear to auscultation, no wheezing or crackles. ABDOMEN: Soft, nontender, nondistended, normoactive bowel sounds. No palpable organomegaly. MUSCULOSKELETAL: No joint swelling or deformity. EXTREMITIES: No cyanosis, clubbing, or pedal edema. NEUROLOGICAL: Gross neurological examination did not reveal any focal deficits. SKIN: No rashes. no petechiae. - Vital Signs Vital signs: Vital Signs Temp 98.3 F 03/31/21 07:31 Pulse 87 03/31/21 07:31 Resp 14 03/31/21 07:31 BP 166/85 03/31/21 07:31 Pulse Ox 90 L 03/31/21 07:31 Intake & Output 03/30/21 03/31/21 03/31/21 18:59 06:59 18:59 Intake Total 950 100 Balance 950 100 Intake: IV 50 Thiamine 100 mg In Sodium 50 Chloride 0.9% 50 ml @ 100 mls/hr IVPB Q12HR [facility] Rx#:[id number] Intake, IV Titration 100 Amount Thiamine 100 mg In Sodium 100 Chloride 0.9% 50 ml @ 100 mls/hr IVPB Q12HR [facility] Rx#:[id number] Oral 900 0 Other: Voiding Method External Catheter External Catheter Diaper Incontinent # Voids 1 3 Patient Condition at Discharge: Fair Plan - Discharge Summary Discharge Rx Participant: No New Discharge Prescriptions: New RX: Cyanocobalamin (Vitamin B-12) [Vitamin B-12] 1,000 mcg PO DAILY #30 tablet RX: Folic Acid 1 mg PO DAILY #30 tab RX: Carbidopa-Levodopa 25-100 mg [Sinemet 25-100 mg] 1 each PO QID #120 tab RX: Thiamine [Vitamin B-1] 100 mg PO DAILY #30 tablet Continue RX: Donepezil [Aricept] 10 mg PO HS Discharge Medication List RX: Donepezil [Aricept] 10 mg PO HS 03/26/21 [History] RX: Carbidopa-Levodopa 25-100 mg [Sinemet 25-100 mg] 1 each PO QID #120 tab 03/31/21 [Rx] RX: Cyanocobalamin (Vitamin B-12) [Vitamin B-12] 1,000 mcg PO DAILY #30 tablet 03/31/21 [Rx] RX: Folic Acid 1 mg PO DAILY #30 tab 03/31/21 [Rx] RX: Thiamine [Vitamin B-1] 100 mg PO DAILY #30 tablet 03/31/21 [Rx] Follow up Appointment(s)/Referral(s): [facility] [[facility]-STAFF] - Bernard Cummings DO [Primary Care Provider] - 1-2 days Patient Instructions/Handouts: Hospice (DC) Discharge Disposition: HOME WITH HOSPICE
== END 2021-03-31 18:20 | disposition hospice, home (50) | DRG 56 ==
LOC: EC 11:30 → 4SSUR 16:06
PROVIDERS: ADMIT Internal Medicine; ATTEND Internal Medicine
DX: G20 Parkinson's disease (principal); G93.41 Metabolic encephalopathy; J44.0 Chronic obstructive pulmonary disease with (acute) lower respiratory infection; G91.2 (Idiopathic) normal pressure hydrocephalus; F10.10 Alcohol abuse, uncomplicated; F17.200 Nicotine dependence, unspecified, uncomplicated; Z20.822 Contact with and (suspected) exposure to COVID-19; R26.2 Difficulty in walking, not elsewhere classified; F02.80 Dementia in other diseases classified elsewhere, unspecified severity, without behavioral disturbance, psychotic disturbance, mood disturbance, and anxiety; E55.9 Vitamin D deficiency, unspecified; Z79.899 Other long term (current) drug therapy; J84.89 Other specified interstitial pulmonary diseases; I50.9 Heart failure, unspecified; D64.9 Anemia, unspecified; R09.02 Hypoxemia; R13.10 Dysphagia, unspecified
CPT/HCPCS: 36415; 36600; 70450; 70551; 71045; 71046; 71260; 74230; 80048; 80053; 80076; 80320; 81003; 82140; 82607; 82746; 82805; 83036; 83735; 83880; 84100; 84145; 84443; 84484; 85025; 85610; 85730; 87040; 87635; 93005; 94640; 95816; 96360; 96361; 99285